=== PATIENT | female | born 1960 | race Caucasian/White ===

== ENCOUNTER 2018-07-25 18:32 | Emergency (ER) | payer OTHER, SELFPAY ==
[2018-07-25] MEDS ORDERED: HYDROCODONE/APAP 5/325 MG TAB ONE (19:26)
[2018-07-25] MEDS ORDERED: NA CHLORIDE 0.9% 1,000 ML ONE (19:26)
[2018-07-25 19:30] LABS: Absolute Lymphocytes (CBC) 0.9 K/uL (0.7-4.9); Absolute Monocytes 1.1 K/uL (0.1-1.3); Absolute Neutrophil 8.1 K/uL (1.8-8.0); Basophils % 0.3 % (0-1.3); Hematocrit 40.1 % (36.0-45.0); Lymphocytes % 8.7 % (15.3-44.8); MCH 30.7 pg (27.0-35.0); MCV 91.2 fL (80-100); MPV 7.7 fL (7.6-11.3)
[2018-07-25 19:55] LABS: Albumin 2.4 g/dL (3.4-5.0); Bilirubin Direct 0.3 mg/dL (0-0.2); Bilirubin Total 0.5 mg/dL (0.2-1.0); Potassium 3.4 mmol/L (3.5-5.1); Protein, Total 6.6 g/dL (6.4-8.2)
--- NOTE | 2018-07-25 20:31 | ER ---
Nurse's Notes [facility] Name: Ruma Daniel Age: 58 yrs Sex: Female : 1960 Arrival Date: 07/25/2018 Time: 18:36 Bed 4 Private MD: Diagnosis: Diarrhea, unspecified;Vomiting;Viral gastroenteritis;Headache Presentation: 07/25 18:37 Presenting complaint: EMS states: NAUSEA/VOMITING/DIARRHEA x3 DAYS. Transition of care: bp patient was not received from another setting of care. Onset of symptoms is unknown. Risk Assessment: Do you want to hurt yourself or someone else? Patient reports no desire to harm self or others. Initial Sepsis Screen: Does the patient meet any 2 criteria? HR > 90 bpm. No. Patient's initial sepsis screen is negative. Does the patient have a suspected source of infection? No. Patient's initial sepsis screen is negative. Care prior to arrival: Glucose check: 183. 18:37 Method Of Arrival: EMS: [facility] bp 18:37 Acuity: LELE 3 bp Triage Assessment: 18:38 General: Appears in no apparent distress. comfortable, obese, Behavior is cooperative, bp appropriate for age, anxious. Pain: Denies pain. EENT: No deficits noted. Neuro: Level of Consciousness is awake, alert, obeys commands, Oriented to person, place, time, situation, Appropriate for age. Cardiovascular: No deficits noted. Respiratory: Airway is patent Respiratory effort is even, unlabored, Respiratory pattern is regular, symmetrical. GI: Abdomen is obese, Reports diarrhea, nausea, vomiting. : No signs and/or symptoms were reported regarding the genitourinary system. Derm: No deficits noted. Musculoskeletal: Circulation, motion, and sensation intact. Range of motion: intact in all extremities. Historical: - Allergies: 18:38 Lisinopril; bp 18:38 Reglan; bp - PMHx: 18:38 Diabetes - IDDM; bp - PSHx: 18:38 Gastric Bypass; bp - Immunization history:: Adult Immunizations up to date. - Social history:: Smoking status: Patient/guardian denies using tobacco. - Ebola Screening: : Patient negative for fever greater than or equal to 101.5 degrees Fahrenheit, and additional compatible Ebola Virus Disease symptoms Patient denies exposure to infectious person Patient denies travel to an Ebola-affected area in the 21 days before illness onset No symptoms or risks identified at this time. Screenin:51 Abuse screen: Denies threats or abuse. Denies injuries from another. Nutritional bp screening: No deficits noted. Tuberculosis screening: No symptoms or risk factors identified. Fall Risk None identified. Assessment: 18:38 General: SEE TRIAGE NOTE. GI: Abdomen is obese, Bowel sounds present X 4 quads. bp 19:00 General: Appears uncomfortable, Behavior is calm, cooperative, appropriate for age. ea Pain: Denies pain. Neuro: Level of Consciousness is awake, alert, obeys commands, Oriented to person, place, time, situation. Cardiovascular: Patient's skin is warm and dry. Respiratory: Airway is patent Respiratory effort is even, unlabored, Respiratory pattern is regular, symmetrical. GI: Abdomen is obese, Bowel sounds present X 4 quads. Derm: Skin is pink, warm \T\ dry. Musculoskeletal: Reports generalized weakness. 20:56 Reassessment: Patient and/or family updated on plan of care and expected duration. Pain ea level reassessed. Patient is alert, oriented x 3, equal unlabored respirations, skin warm/dry/pink. Patient states feeling better. Patient states symptoms have improved. 21:12 Reassessment: Patient and/or family updated on plan of care and expected duration. Pain ea level reassessed. Patient is alert, oriented x 3, equal unlabored respirations, skin warm/dry/pink. Discharge instruction given to patient, verbalized the understanding of instruction Patient denies pain at this time. Patient states feeling better. Patient states symptoms have improved. Vital Signs: 18:38 BP 146 / 65; Pulse 95; Resp 20; Temp 98; Pulse Ox 93% ; Weight 122.47 kg; Height 5 ft. bp 5 in. (165.10 cm); 19:00 BP 137 / 53; Pulse 80; Resp 18; Pulse Ox 95% on R/A; ea 20:56 BP 111 / 56; Pulse 78; Resp 18; Temp 97.8(O); Pulse Ox 98% on R/A; ea 18:38 Body Mass Index 44.93 (122.47 kg, 165.10 cm) bp ED Course: 18:36 Patient arrived in ED. bp 18:38 Triage completed. bp 18:38 Arm band placed on. bp 18:43 Kendrick Stroud NP is PHCP. pm1 18:43 Braxton Marks MD is Attending Physician. pm1 18:51 Patient has correct armband on for positive identification. Bed in low position. Call bp light in reach. Side rails up X2. 18:55 Lyndon De La Garza, RN is Primary Nurse. bp 19:15 Inserted saline lock: 22 gauge in right antecubital area, using aseptic technique. bp Blood collected. 20:56 No provider procedures requiring assistance completed. ea 21:00 IV discontinued, intact, bleeding controlled, No redness/swelling at site. Pressure ea dressing applied. Administered Medications: 19:23 Drug: HYDROcodone-acetaminophen 5 mg-325 mg 1 tabs Route: PO; bp 20:55 Follow up: Response: No adverse reaction; Pain is decreased ea 19:24 Drug: NS 0.9% 1000 ml Route: IV; Rate: 1000 ml; Site: right antecubital; bp 21:00 Follow up: Response: No adverse reaction; IV Status: Completed infusion; IV Intake: ea 1000ml 20:39 Drug: Potassium Chloride 20 mEq Route: PO; ea 20:55 Follow up: Response: No adverse reaction ea Intake: 21:00 IV: 1000ml; Total: 1000ml. ea Outcome: 20:31 Discharge ordered by MD. pm1 21:13 Discharged to home via wheelchair, with family. ea 21:13 Condition: stable 21:13 Discharge instructions given to patient, Instructed on discharge instructions, follow up and referral plans. medication usage, Demonstrated understanding of instructions, follow-up care, medications, Prescriptions given X 2. 21:14 Patient left the ED. ea Signatures: Kendrick Stroud NP ENVIRONMENTAL CONFLICT MANAGER pm1 Yane Sin RN RN ea Lyndon De La Garza, RN RN bp
--- NOTE | 2018-07-25 20:31 | EDPHYS ---
Physician Documentation [facility] Name: Ruma Daniel Age: 58 yrs Sex: Female : 1960 Arrival Date: 07/25/2018 Time: 18:36 Bed 4 Private MD: ED Physician Braxton Marks HPI: 07/25 19:00 This 58 yrs old Female presents to ER via EMS with complaints of pm1 Nausea/Vomiting/Diarrhea. 19:00 The patient presents to the emergency department with nausea, vomiting, diarrhea. pm1 Onset: The symptoms/episode began/occurred 3 day(s) ago. Possible causes: sick contacts, by family, father. The symptoms are aggravated by nothing. The symptoms are alleviated by Lomotil and phenergan. Associated signs and symptoms: Pertinent negatives: abdominal pain, dysuria, fever. Severity of symptoms: in the emergency department the symptoms have resolved no diarrhea or vomiting today. Historical: - Allergies: 18:38 Lisinopril; bp 18:38 Reglan; bp - PMHx: 18:38 Diabetes - IDDM; bp - PSHx: 18:38 Gastric Bypass; bp - Immunization history:: Adult Immunizations up to date. - Social history:: Smoking status: Patient/guardian denies using tobacco. - Ebola Screening: : Patient negative for fever greater than or equal to 101.5 degrees Fahrenheit, and additional compatible Ebola Virus Disease symptoms Patient denies exposure to infectious person Patient denies travel to an Ebola-affected area in the 21 days before illness onset No symptoms or risks identified at this time. ROS: 19:00 Constitutional: Negative for fever, chills, and weight loss, Eyes: Negative for injury, pm1 pain, redness, and discharge, ENT: Negative for injury, pain, and discharge, Neck: Negative for injury, pain, and swelling, Cardiovascular: Negative for chest pain, palpitations, and edema, Respiratory: Negative for shortness of breath, cough, wheezing, and pleuritic chest pain. 19:00 Back: Negative for injury and pain, : Negative for injury, bleeding, discharge, and swelling, MS/Extremity: Negative for injury and deformity, Skin: Negative for injury, rash, and discoloration, Neuro: Negative for headache, weakness, numbness, tingling, and seizure. 19:00 Abdomen/GI: Positive for nausea, vomiting, and diarrhea, Negative for abdominal pain. Exam: 19:00 Constitutional: This is a well developed, well nourished patient who is awake, alert, pm1 and in no acute distress. Head/Face: Normocephalic, atraumatic. Eyes: Pupils equal round and reactive to light, extra-ocular motions intact. Lids and lashes normal. Conjunctiva and sclera are non-icteric and not injected. Cornea within normal limits. Periorbital areas with no swelling, redness, or edema. ENT: Nares patent. No nasal discharge, no septal abnormalities noted. Tympanic membranes are normal and external auditory canals are clear. Oropharynx with no redness, swelling, or masses, exudates, or evidence of obstruction, uvula midline. Mucous membranes moist. Neck: Trachea midline, no thyromegaly or masses palpated, and no cervical lymphadenopathy. Supple, full range of motion without nuchal rigidity, or vertebral point tenderness. No Meningismus. Chest/axilla: Normal chest wall appearance and motion. Nontender with no deformity. No lesions are appreciated. Cardiovascular: Regular rate and rhythm with a normal S1 and S2. No gallops, murmurs, or rubs. Normal PMI, no JVD. No pulse deficits. Respiratory: Lungs have equal breath sounds bilaterally, clear to auscultation and percussion. No rales, rhonchi or wheezes noted. No increased work of breathing, no retractions or nasal flaring. Abdomen/GI: Soft, non-tender, with normal bowel sounds. No distension or tympany. No guarding or rebound. No evidence of tenderness throughout. Back: No spinal tenderness. No costovertebral tenderness. Full range of motion. Skin: Warm, dry with normal turgor. Normal color with no rashes, no lesions, and no evidence of cellulitis. MS/ Extremity: Pulses equal, no cyanosis. Neurovascular intact. Full, normal range of motion. 19:00 Neuro: Orientation: is normal, Motor: is normal, moves all fours, Sensation: is normal, no obvious gross deficits, Gait: is steady, at a normal pace, without difficulty. Vital Signs: 18:38 BP 146 / 65; Pulse 95; Resp 20; Temp 98; Pulse Ox 93% ; Weight 122.47 kg; Height 5 ft. bp 5 in. (165.10 cm); 19:00 BP 137 / 53; Pulse 80; Resp 18; Pulse Ox 95% on R/A; ea 20:56 BP 111 / 56; Pulse 78; Resp 18; Temp 97.8(O); Pulse Ox 98% on R/A; ea 18:38 Body Mass Index 44.93 (122.47 kg, 165.10 cm) bp MDM: 18:44 Patient medically screened. pm1 18:54 Data reviewed: vital signs. pm1 20:30 Counseling: I had a detailed discussion with the patient and/or guardian regarding: the pm1 historical points, exam findings, and any diagnostic results supporting the discharge/admit diagnosis, lab results, the need for outpatient follow up, to return to the emergency department if symptoms worsen or persist or if there are any questions or concerns that arise at home. 07/25 18:55 Order name: Basic Metabolic Panel; Complete Time: 19:57 pm1 07/25 18:55 Order name: CBC with Diff; Complete Time: 19:39 pm1 07/25 18:55 Order name: Hepatic Function; Complete Time: 19:57 pm1 07/25 18:55 Order name: IV Saline Lock; Complete Time: 19:24 pm1 07/25 18:55 Order name: Labs collected and sent; Complete Time: 19:24 pm1 07/25 20:25 Order name: PO challenge; Complete Time: 20:36 pm1 Administered Medications: 19:23 Drug: HYDROcodone-acetaminophen 5 mg-325 mg 1 tabs Route: PO; bp 20:55 Follow up: Response: No adverse reaction; Pain is decreased ea 19:24 Drug: NS 0.9% 1000 ml Route: IV; Rate: 1000 ml; Site: right antecubital; bp 21:00 Follow up: Response: No adverse reaction; IV Status: Completed infusion; IV Intake: ea 1000ml 20:39 Drug: Potassium Chloride 20 mEq Route: PO; ea 20:55 Follow up: Response: No adverse reaction ea Disposition: 07/26 07:15 Co-signature as Attending Physician, Braxton Marks MD I agree with the assessment and aline plan of care. Disposition: 07/25/18 20:31 Discharged to Home. Impression: Diarrhea, unspecified, Vomiting, Viral gastroenteritis, Headache. - Condition is Stable. - Discharge Instructions: Food Choices to Help Relieve Diarrhea, Adult, Diarrhea, Adult, Nausea and Vomiting, Adult, Viral Gastroenteritis, Adult. - Prescriptions for promethazine 25 mg Oral Tablet - take 1 tablet by ORAL route every 6 hours As needed; 20 tablet. Tylenol- Codeine #3 300-30 mg Oral Tablet - take 2 tablets by ORAL route every 6 hours As needed; 20 tablet. - Medication Reconciliation Form, Thank You Letter, Antibiotic Education, Prescription Opioid Use form. - Follow up: Emergency Department; When: As needed; Reason: Worsening of condition. Follow up: Private Physician; When: 2 - 3 days; Reason: Recheck today's complaints, Continuance of care, Re-evaluation by your physician. - Problem is new. - Symptoms have improved. Signatures: Dispatcher [employer] EDMS Braxton Marks MD MD cha Marinas, Patrick, JOSE ALFREDO CALENDERING SUPERVISOR pm1 Yane Sin, RN RN Lyndon Navarro RN RN bp Corrections: (The following items were deleted from the chart) 07/25 20:32 20:31 07/25/2018 20:31 Discharged to Home. Impression: Diarrhea, unspecified; Vomiting; pm1 Viral gastroenteritis. Condition is Stable. Forms are Medication Reconciliation Form, Thank You Letter, Antibiotic Education, Prescription Opioid Use. Follow up: Emergency Department; When: As needed; Reason: Worsening of condition. Follow up: Private Physician; When: 2 - 3 days; Reason: Recheck today's complaints, Continuance of care, Re-evaluation by your physician. Problem is new. Symptoms have improved. [facility] 20:57 18:55 Urine Dipstick-Ancillary ordered. [facility] 20:57 18:55 Urine Test ordered. [facility] ea 21:14 20:32 07/25/2018 20:31 Discharged to Home. Impression: Diarrhea, unspecified; Vomiting; ea Viral gastroenteritis; Headache. Condition is Stable. Discharge Instructions: Food Choices to Help Relieve Diarrhea, Adult, Diarrhea, Adult, Nausea and Vomiting, Adult, Viral Gastroenteritis, Adult. Prescriptions for promethazine 25 mg Oral Tablet - take 1 tablet by ORAL route every 6 hours As needed; 20 tablet, Tylenol-Codeine #3 300-30 mg Oral Tablet - take 2 tablets by ORAL route every 6 hours As needed; 20 tablet. and Forms are Medication Reconciliation Form, Thank You Letter, Antibiotic Education, Prescription Opioid Use. Follow up: Emergency Department; When: As needed; Reason: Worsening of condition. Follow up: Private Physician; When: 2 - 3 days; Reason: Recheck today's complaints, Continuance of care, Re-evaluation by your physician. Problem is new. Symptoms have improved. pm1
[2018-07-25] MEDS ORDERED: POTASSIUM CL SA 10 MEQ TAB PO ONE (20:45)
== END 2018-07-25 21:14 | disposition home or self-care (01) ==
LOC: ER 18:32
DX: A08.4 Viral intestinal infection, unspecified (principal); R51 Headache; Z88.8 Allergy status to other drugs, medicaments and biological substances
CPT/HCPCS: 36415; 80048; 80076; 85025; 96360; 96361; 99284; J7030

== ENCOUNTER 2018-07-29 19:21 | Inpatient (IN) | payer OTHER ==
--- OUTSIDE RECORDS SUMMARY | 2018-07-29 19:23 | XMS REPORT ---
:1960 [facility] Address [address] [place] [address] Care Team Providers Name Role Phone Unavailable Unavailable Unavailable Payers Payer Name Policy Type Policy Number Effective Date Expiration Date Problems This patient has no known problems. Allergies, Adverse Reactions, Alerts Allergy Name Allergy Status Severity Reaction(s) Onset Inactive Treating Comments Type Date Date Clinician lisinopril DA Active SV 2017-08 0-16 00:00: 00 metformin DA Active MO 2017-08 016 00:00: 00 metoclopramide DA Active SV 2017-08 016 00:00: 00 lisinopril DA Active SV 02-15 00:00: 00 metformin DA Active MO 02-15 00:00: 00 metoclopramide DA Active SV 6 00:00: 00 Medications This patient has no known medications.
[2018-07-29] MEDS ORDERED: ONDANSETRON 4 MG/2 ML VIAL ONE (19:57)
[2018-07-29] MEDS ORDERED: NA CHLORIDE 0.9% 1,000 ML ONE (19:58)
[2018-07-29 20:26] LABS: Albumin 1.8 g/dL (3.4-5.0); Bilirubin Direct 0.3 mg/dL (0-0.2); Bilirubin Total 0.5 mg/dL (0.2-1.0); Protein, Total 6.8 g/dL (6.4-8.2)
[2018-07-29 20:28] LABS: Potassium 2.9 mmol/L (3.5-5.1)
[2018-07-29 20:29] LABS: Absolute Lymphocytes (CBC) 0.9 K/uL (0.7-4.9); Absolute Monocytes 2.1 K/uL (0.1-1.3); Basophils % 0.2 % (0-1.3); Hematocrit 38.8 % (36.0-45.0); Lymphocytes % 3.7 % (15.3-44.8); MCH 30.5 pg (27.0-35.0); MCV 90.7 fL (80-100); MPV 9.3 fL (7.6-11.3); Monocytes % 8.4 % (3.3-12.3); RBC Red Blood Cell Count 4.28 M/uL (3.86-4.86)
[2018-07-29] MEDS ORDERED: KCL 20 MEQ/100 mL IVPB 20 MEQ/100 ML BAG IV ONE (20:41)
[2018-07-29] MEDS ORDERED: POTASSIUM CL SA 10 MEQ TAB PO ONE (20:41)
[2018-07-29 21:17] LABS: Blood Morphology Comment NOT SEEN (NOT SEEN); Platelet Estimate ADEQ
[2018-07-30] MEDS ORDERED: CEFTRIAXONE/SWI 1gm 1 GM/10 ML SYR ONE (00:10)
[2018-07-30] MEDS ORDERED: NA CHLORIDE 0.9% 500 ML ONE (00:10)
--- NOTE | 2018-07-30 00:14 | EDPHYS ---
Physician Documentation [facility] Name: Ruma Daniel Age: 58 yrs Sex: Female : 1960 Arrival Date: 07/29/2018 Time: 19:25 Bed 6 Private MD: ED Physician Chano Encarnacion HPI: 07/29 19:47 This 58 yrs old Female presents to ER via EMS with complaints of nausea, rn weakness. 19:48 The patient presents to the emergency department with nausea, vomiting. Onset: The rn symptoms/episode began/occurred 2 day(s) ago. Possible causes: unknown. The symptoms are aggravated by nothing. The symptoms are alleviated by nothing. Severity of symptoms: At their worst the symptoms were mild in the emergency department the symptoms are unchanged. The patient has not experienced similar symptoms in the past. The patient has been recently seen at the [facility] Emergency Department. Reports nausea/vomiting/diarrhea for a few days, + generalized weakness, seen here 2 days ago, diagnosed with viral syndrome, felt better, then symptoms worsened yesterday afternoon. Not taking her medications prescribed or diabetic meds. . Historical: - Allergies: 19:47 Lisinopril; jd3 19:47 Reglan; jd3 19:47 metformin; jd3 - Home Meds: 19:47 gabapentin 600 mg oral tab 1 tab every 8 hours [Active]; Lyrica 150 mg Oral 1 cap 3 jd3 times per day [Active]; Klor-Con M20 20 mEq Oral TbTQ 1 tab 2 times per day [Active]; ketorolac 10 mg Oral tab 1 tab every 8 hours [Active]; polymyxin B sulf-trimethoprim 10,000 unit- 1 mg/mL ophthalmic drop 1 drop twice a day [Active]; acetaminophen-codeine 300-30 mg Oral tab 2 tabs every 6 hours [Active]; topiramate 25 mg oral CSpX 1 cap twice a day [Active]; Januvia 100 mg oral tab 1 tab once daily [Active]; fluoxetine 40 mg Oral cap 1 cap once daily [Active]; carvedilol 12.5 mg oral tab 1 tab 2 times per day [Active]; pantoprazole 20 mg oral TbEC 1 tab once daily [Active]; glimepiride 1 mg Oral tab 1 tab twice a day [Active]; promethazine 25 mg Oral tab 1 tab every 6 hours [Active]; cyclobenzaprine 10 mg Oral tab 1 tab 2 times per day [Active]; atorvastatin 40 mg oral tab 1 tab once daily [Active]; - PMHx: 19:47 breast cancer; Sleep Apnea; Diabetes - NIDDM; High Cholesterol; jd3 - PSHx: 19:47 Gastric Bypass; ; lymph sx (no sticks on right arm); jd3 - Immunization history:: Adult Immunizations up to date, Flu vaccine is up to date. - Social history:: Smoking status: Patient/guardian denies using tobacco, the patient reports quitting approximately 4 years ago. - Ebola Screening: : No symptoms or risks identified at this time. - Family history:: not pertinent. - Hospitalizations: : No recent hospitalization is reported. ROS: 19:48 Constitutional: + chills Eyes: Negative for injury, pain, redness, and discharge, ENT: rn dry mouth Neck: Negative for injury, pain, and swelling, Cardiovascular: Negative for chest pain, palpitations, and edema, Respiratory: Negative for shortness of breath, cough, wheezing, and pleuritic chest pain, Abdomen/GI: + nausea/vomiting MS/Extremity: Negative for injury and deformity, Skin: Negative for injury, rash, and discoloration, Neuro: + generalized weakness Exam: 19:48 Constitutional: Overweight female no acute distress Head/Face: Normocephalic, rn atraumatic. Eyes: Pupils equal round and reactive to light, extra-ocular motions intact. Lids and lashes normal. Conjunctiva and sclera are non-icteric and not injected. Cornea within normal limits. Periorbital areas with no swelling, redness, or edema. ENT: dry MM Neck: Trachea midline, no thyromegaly or masses palpated, and no cervical lymphadenopathy. Supple, full range of motion without nuchal rigidity, or vertebral point tenderness. No Meningismus. Cardiovascular: tachycardic, regular, no murmur Respiratory: Lungs have equal breath sounds bilaterally, clear to auscultation. No rales, rhonchi or wheezes noted. No increased work of breathing, no retractions or nasal flaring. Abdomen/GI: soft, non-tender MS/ Extremity: Pulses equal, no cyanosis. Neurovascular intact. Full, normal range of motion. Equal circumference. Neuro: Awake and alert, GCS 15, oriented to person, place, time, and situation. Cranial nerves II-XII grossly intact. Motor strength 5/5 in all extremities. Sensory grossly intact. Vital Signs: 19:47 BP 99 / 88; Pulse 107; Resp 20 S; Temp 98.7(O); Pulse Ox 95% on R/A; Weight 122.47 kg jd3 (R); Height 5 ft. 5 in. (165.10 cm) (R); Pain 7/10; 19:52 BP 90 / 56; Pulse 96; Resp 18; Pulse Ox 95% on R/A; mt 20:48 BP 101 / 56; Pulse 91; Resp 20 S; Pulse Ox 96% on R/A; jd3 23:47 BP 135 / 72; Pulse 77; Resp 20 S; Pulse Ox 97% on 2 lpm NC; jd3 07/30 00:46 BP 136 / 52; Pulse 77; Resp 20 S; Pulse Ox 97% on R/A; jd3 01:30 BP 137 / 59; Pulse 80; Resp 18; Pulse Ox 98% on 2 lpm NC; lp1 02:30 BP 106 / 49; Pulse 86; Resp 18; Pulse Ox 98% on 2 lpm NC; lp1 03:00 BP 100 / 52; Pulse 76; Resp 18; Pulse Ox 99% on 2 lpm NC; lp1 03:48 BP 111 / 54; Pulse 77; Resp 18; Pulse Ox 99% on 2 lpm NC; lp1 07/29 19:47 Body Mass Index 44.93 (122.47 kg, 165.10 cm) [facility] MDM: 07/29 19:25 Patient medically screened. rn 07/30 00:11 Differential diagnosis: Nonspecific abd pain, diverticulitis, viral gastroenteritis, rn gastroenteritis, kidney stone. Data reviewed: vital signs, nurses notes, lab test result(s), radiologic studies, CT scan, and as a result, I will admit patient. Counseling: I had a detailed discussion with the patient and/or guardian regarding: the historical points, exam findings, and any diagnostic results supporting the discharge/admit diagnosis, lab results, radiology results, the need for further work-up and treatment in the hospital. Response to treatment: the patient's symptoms have mildly improved after treatment. Admission orders: after a detailed discussion of the patient's condition and case, the admit orders are written by me. 07/29 19:26 Order name: Basic Metabolic Panel; Complete Time: 20:32 rn 07/29 19:26 Order name: CBC with Diff; Complete Time: 21:32 rn 07/29 19:26 Order name: Hepatic Function; Complete Time: 20:32 rn 07/29 19:26 Order name: Lipase; Complete Time: 20:32 rn 07/29 19:26 Order name: Flu; Complete Time: 21:32 rn 07/29 21:18 Order name: Manual Differential; Complete Time: 21:32 EDAL 07/29 19:48 Order name: CT Abd/Pelvis - W/Contrast rn 07/29 19:48 Order name: US Abdomen Limited rn 07/30 00:04 Order name: Urine Microscopic Only 07/30 00:05 Order name: Urine Dipstick--Ancillary (enter results) 07/30 00:58 Order name: Urine Dipstick-Ancillary EDAL 07/30 01:00 Order name: Urine Microscopic Only EDAL 07/30 01:51 Order name: Glucose, Ancillary Testing EDAL 07/29 19:26 Order name: IV Start; Complete Time: 19:31 rn 07/29 19:26 Order name: IV Saline Lock; Complete Time: 19:31 rn 07/29 19:26 Order name: Labs collected and sent; Complete Time: 19:31 rn 07/29 19:26 Order name: Urine Dipstick-Ancillary (obtain specimen); Complete Time: 00:04 rn 07/29 19:26 Order name: Glucose Level; Complete Time: 19:34 rn Administered Medications: 07/29 19:53 Drug: Zofran 4 mg Route: IVP; Site: right antecubital; d3 21:08 Follow up: Response: No adverse reaction [facility] 19:53 Drug: NS 0.9% 1000 ml Route: IV; Rate: 1000 ml; Site: right antecubital; [facility] 12 20:53 Follow up: Response: No adverse reaction; IV Status: Completed infusion [facility] 07/29 20:42 Drug: Potassium Chloride 40 mEq Route: PO; [facility] 07/30 04:10 Follow up: Response: No adverse reaction [facility] 07/29 20:42 Drug: Potassium Chloride 20 mEq Route: IV; Rate: calculated rate; Site: left [facility] antecubital; 07/30 04:10 Follow up: Response: No adverse reaction; IV Status: Completed infusion jd3 00:14 Drug: NS 0.9% 500 ml Route: IV; Rate: bolus; Site: left antecubital; bb 04:10 Follow up: Response: No adverse reaction; IV Status: Completed infusion jd3 00:14 Drug: Rocephin - (cefTRIAXone) 1 grams Route: IVPB; Infused Over: 30 mins; Site: left bb antecubital; 04:10 Follow up: Response: No adverse reaction; IV Status: Completed infusion jd3 01:36 Drug: TORadol 30 mg Route: IVP; Site: left antecubital; jd3 04:09 Follow up: Response: No adverse reaction jd3 Point of Care Testing: Blood Glucose: 07/29 19:33 Blood Glucose: 323 mg/dL; pa Ranges: Critical Glucose Levels:Adult <50 mg/dl or >400 mg/dl <40 mg/dl or >180 mg/dl Disposition: 07/30/18 00:13 Hospitalization ordered by Shelia Hancock for Inpatient Admission. Preliminary diagnosis are Ureteral stone with hydronephrosis, Dehydration, Weakness. - Bed requested for Telemetry/MedSurg (Inpatient). - Status is Inpatient Admission. lp1 - Condition is Stable. - Problem is new. - Symptoms have improved. UTI on Admission? No Signatures: Dispatcher [employer] EDMS Dee Sam RN RN bb Chano Encarnacion MD MD rn Martinez, Eric em1 Cyndi Obrien RN RN lp1 Dick Whitehead RN RN jd3 Corrections: (The following items were deleted from the chart) 07/30 03:45 00:13 Hospitalization Ordered by Shelia Hancock MD for Inpatient Admission. Preliminary em1 diagnosis is Ureteral stone with hydronephrosis; Dehydration; Weakness. Bed requested for Telemetry/MedSurg (Inpatient). Status is Inpatient Admission. Condition is Stable. Problem is new. Symptoms have improved. UTI on Admission? No. rn 04:19 03:45 07/30/2018 00:13 Hospitalization Ordered by Shelia Hancock MD for Inpatient lp1 Admission. Preliminary diagnosis is Ureteral stone with hydronephrosis; Dehydration; Weakness. Bed requested for Telemetry/MedSurg (Inpatient). Status is Inpatient Admission. Condition is Stable. Problem is new. Symptoms have improved. UTI on Admission? No. em1
--- NOTE | 2018-07-30 00:14 | ER ---
Nurse's Notes [facility] Name: Ruma Daniel Age: 58 yrs Sex: Female : 1960 Arrival Date: 07/29/2018 Time: 19:25 Bed 6 Private MD: Diagnosis: Ureteral stone with hydronephrosis;Dehydration;Weakness Presentation: 07/29 19:31 Presenting complaint: EMS states: "we were called out for a pt with nausea and jd3 weakness, she was seen here recently with similar problems and has not been compliant with taking her medications including her home meds.". Transition of care: patient was not received from another setting of care. Onset of symptoms was July 29, 2018. Risk Assessment: Do you want to hurt yourself or someone else? Patient reports no desire to harm self or others. Initial Sepsis Screen: Does the patient meet any 2 criteria? No. Patient's initial sepsis screen is negative. Does the patient have a suspected source of infection? No. Patient's initial sepsis screen is negative. Care prior to arrival: None. 19:31 Method Of Arrival: EMS: [facility] jd3 19:31 Acuity: LELE 3 jd3 Historical: - Allergies: 19:47 Lisinopril; jd3 19:47 Reglan; jd3 19:47 metformin; jd3 - Home Meds: 19:47 gabapentin 600 mg oral tab 1 tab every 8 hours [Active]; Lyrica 150 mg Oral 1 cap 3 jd3 times per day [Active]; Klor-Con M20 20 mEq Oral TbTQ 1 tab 2 times per day [Active]; ketorolac 10 mg Oral tab 1 tab every 8 hours [Active]; polymyxin B sulf-trimethoprim 10,000 unit- 1 mg/mL ophthalmic drop 1 drop twice a day [Active]; acetaminophen-codeine 300-30 mg Oral tab 2 tabs every 6 hours [Active]; topiramate 25 mg oral CSpX 1 cap twice a day [Active]; Januvia 100 mg oral tab 1 tab once daily [Active]; fluoxetine 40 mg Oral cap 1 cap once daily [Active]; carvedilol 12.5 mg oral tab 1 tab 2 times per day [Active]; pantoprazole 20 mg oral TbEC 1 tab once daily [Active]; glimepiride 1 mg Oral tab 1 tab twice a day [Active]; promethazine 25 mg Oral tab 1 tab every 6 hours [Active]; cyclobenzaprine 10 mg Oral tab 1 tab 2 times per day [Active]; atorvastatin 40 mg oral tab 1 tab once daily [Active]; - PMHx: 19:47 breast cancer; Sleep Apnea; Diabetes - NIDDM; High Cholesterol; jd3 - PSHx: 19:47 Gastric Bypass; ; lymph sx (no sticks on right arm); jd3 - Immunization history:: Adult Immunizations up to date, Flu vaccine is up to date. - Social history:: Smoking status: Patient/guardian denies using tobacco, the patient reports quitting approximately 4 years ago. - Ebola Screening: : No symptoms or risks identified at this time. - Family history:: not pertinent. - Hospitalizations: : No recent hospitalization is reported. Screenin:48 Abuse screen: Denies threats or abuse. Nutritional screening: No deficits noted. jd3 Tuberculosis screening: No symptoms or risk factors identified. Fall Risk IV access (20 points). Ambulatory Aid- Crutches/Cane/Walker (15 pts). Gait- Weak (10 pts.). Mental Status- Oriented to own ability (0 pts). Total Rivera Fall Scale indicates High Risk Score (45 or more points). Fall prevention measures have been instituted. Side Rails Up X 2 Placed Close to Nursing Station Frequent Obs/Assessments Occuring Family Present and informed to notify staff if the need to leave the bedside. Assessment: 19:30 General: Appears uncomfortable, Behavior is calm, cooperative, appropriate for age, jd3 Reports fatigue for. Pain: Complains of pain in head Quality of pain is described as aching. Neuro: Level of Consciousness is awake, alert, obeys commands, Oriented to person, place, time, situation, Reports weakness. Cardiovascular: Heart tones S1 S2 present Capillary refill < 3 seconds Patient's skin is warm and dry. Respiratory: Airway is patent Respiratory effort is even, unlabored, Respiratory pattern is regular, symmetrical, Breath sounds are clear bilaterally. Denies shortness of breath. GI: Abdomen is round non-distended, obese, Bowel sounds present X 4 quads. Abd is soft and non tender X 4 quads. Reports nausea. : No signs and/or symptoms were reported regarding the genitourinary system. EENT: No signs and/or symptoms were reported regarding the EENT system. Derm: Skin is intact, Skin is dry, Skin is normal, Skin temperature is warm. Musculoskeletal: Circulation, motion, and sensation intact. Range of motion: intact in all extremities. 20:47 Reassessment: Patient appears in no apparent distress at this time. Patient and/or jd3 family updated on plan of care and expected duration. Pain level reassessed. Patient is alert, oriented x 3, equal unlabored respirations, skin warm/dry/pink. 20:49 Reassessment: sister: Chrystal Car [phone], call with disposition. jd3 20:55 Reassessment: CT notified of pt finishing half of contrast. Pt reported that half is jd3 all she could finish. 21:55 Reassessment: Patient appears in no apparent distress at this time. Patient and/or jd3 family updated on plan of care and expected duration. Pain level reassessed. Patient is alert, oriented x 3, equal unlabored respirations, skin warm/dry/pink. 22:55 Reassessment: Patient appears in no apparent distress at this time. No changes from jd3 previously documented assessment. Patient and/or family updated on plan of care and expected duration. Pain level reassessed. Patient is alert, oriented x 3, equal unlabored respirations, skin warm/dry/pink. 23:55 Reassessment: Patient appears in no apparent distress at this time. No changes from jd3 previously documented assessment. Patient and/or family updated on plan of care and expected duration. Pain level reassessed. Patient is alert, oriented x 3, equal unlabored respirations, skin warm/dry/pink. 07/30 00:44 Reassessment: Patient appears in no apparent distress at this time. No changes from jd3 previously documented assessment. Patient and/or family updated on plan of care and expected duration. Pain level reassessed. Patient is alert, oriented x 3, equal unlabored respirations, skin warm/dry/pink. 03:00 Reassessment: Patient resting, eyes closed, respirations unlabored; waiting for room lp1 assignment for admission. Vital Signs: 07/29 19:47 BP 99 / 88; Pulse 107; Resp 20 S; Temp 98.7(O); Pulse Ox 95% on R/A; Weight 122.47 kg jd3 (R); Height 5 ft. 5 in. (165.10 cm) (R); Pain 7/10; 19:52 BP 90 / 56; Pulse 96; Resp 18; Pulse Ox 95% on R/A; mt 20:48 BP 101 / 56; Pulse 91; Resp 20 S; Pulse Ox 96% on R/A; jd3 23:47 BP 135 / 72; Pulse 77; Resp 20 S; Pulse Ox 97% on 2 lpm NC; jd3 07/30 00:46 BP 136 / 52; Pulse 77; Resp 20 S; Pulse Ox 97% on R/A; jd3 01:30 BP 137 / 59; Pulse 80; Resp 18; Pulse Ox 98% on 2 lpm NC; lp1 02:30 BP 106 / 49; Pulse 86; Resp 18; Pulse Ox 98% on 2 lpm NC; lp1 03:00 BP 100 / 52; Pulse 76; Resp 18; Pulse Ox 99% on 2 lpm NC; lp1 03:48 BP 111 / 54; Pulse 77; Resp 18; Pulse Ox 99% on 2 lpm NC; lp1 07/29 19:47 Body Mass Index 44.93 (122.47 kg, 165.10 cm) jd3 ED Course: 07/29 19:25 Patient arrived in ED. as 19:25 Chano Encarnacion MD is Attending Physician. rn 19:30 Dick Whitehead RN is Primary Nurse. jd3 19:33 Inserted saline lock: 20 gauge in left antecubital area, using aseptic technique. Blood mt collected. 19:34 Triage completed. jd3 19:47 Arm band placed on. jd3 20:49 Patient has correct armband on for positive identification. Bed in low position. Call j light in reach. Side rails up X2. Adult w/ patient. 20:51 Notified ED physician of a critical lab result(s). potassium 2.9 and WBC of 25.1. jd3 22:10 Ultrasound completed. Patient tolerated well. sg3 07/30 00:00 Kelley cath inserted, using sterile technique, 16 Fr., by dc, balloon inflated, to bb gravity drainage, urine specimen collected. Patient tolerated well. 00:12 Shelia Hancock MD is Hospitalizing Provider. rn 00:14 Urine Microscopic Only Sent. bb 00:14 Urine Dipstick--Ancillary (enter results) Sent. 03:48 No provider procedures requiring assistance completed. Patient admitted, IV remains in lp1 place. Administered Medications: 07/29 19:53 Drug: Zofran 4 mg Route: IVP; Site: right antecubital; jd3 21:08 Follow up: Response: No adverse reaction jd3 19:53 Drug: NS 0.9% 1000 ml Route: IV; Rate: 1000 ml; Site: right antecubital; jd3 07/30 20:53 Follow up: Response: No adverse reaction; IV Status: Completed infusion jd3 07/29 20:42 Drug: Potassium Chloride 40 mEq Route: PO; jd3 07/30 04:10 Follow up: Response: No adverse reaction jd3 07/29 20:42 Drug: Potassium Chloride 20 mEq Route: IV; Rate: calculated rate; [facility]; 07/30 04:10 Follow up: Response: No adverse reaction; IV Status: Completed infusion jd3 00:14 Drug: NS 0.9% 500 ml Route: IV; Rate: bolus; Site: left antecubital; 04:10 Follow up: Response: No adverse reaction; IV Status: Completed infusion jd3 00:14 Drug: Rocephin - (cefTRIAXone) 1 grams Route: IVPB; Infused Over: 30 mins; Site: left antecubital; 04:10 Follow up: Response: No adverse reaction; IV Status: Completed infusion jd3 01:36 Drug: TORadol 30 mg Route: IVP; Site: left antecubital; jd3 04:09 Follow up: Response: No adverse reaction j Point of Care Testing: Blood Glucose: 07/29 19:33 Blood Glucose: 323 mg/dL; pa Ranges: Outcome: 07/30 00:13 Decision to Hospitalize by Provider. rn 03:48 Condition: stable lp1 03:48 Instructed on the need for admit. 04:09 Admitted to Med/surg accompanied by nurse, via stretcher, room 208, with oxygen, Report jd3 called to Morelia PATINO 04:19 Patient left the ED. lp1 Signatures: Aletha Chambers Brenda, RN RN bb Chano Encarnacion MD MD rn Pena, Laura, RN RN lp1 Michelle Barker mt, Jonathon, RN RN jd3 Tan, Tereza sg3 Corrections: (The following items were deleted from the chart) 03:26 03:00 Report given to CAREY Calles lp1 lp1 03:51 01:30 BP 137 / 59; Pulse 80bpm; Resp 18bpm; Pulse Ox 98% RA; lp1 lp1 03:51 02:30 BP 106 / 49; Pulse 86bpm; Resp 18bpm; Pulse Ox 98% RA; lp1 lp1 03:51 03:00 BP 100 / 52; Pulse 76bpm; Resp 18bpm; Pulse Ox 99% RA; lp1 lp1 03:51 03:48 BP 111 / 54; Pulse 77bpm; Resp 18bpm; Pulse Ox 99% RA; lp1 lp1
[2018-07-30 00:58] LABS: Urine Bacteria LOADED /HPF (<20)
[2018-07-30 00:58] LABS: Urine Blood 2+ (NEG); Urine Glucose NEGATIVE (NEG); Urine Protein 3+ (NEG); Urine Specific Gravity 1.025 (1.005-1.030); Urine pH 5.5 (5.0-7.0)
[2018-07-30 00:59] LABS: Urine Culture Reflex Order REFLEXED
[2018-07-30] MEDS ORDERED: KETOROLAC 30 MG/ML INJ ONE ×2 (01:33→19:21)
[2018-07-30] MEDS: NA CHLORIDE 0.9% 1,000 ML IV SCH ×2 (05:43→16:20)
[2018-07-30 06:49] LABS: Magnesium 1.6 mg/dL (1.8-2.4); Phosphorus 4.1 mg/dL (2.5-4.9); Potassium 3.7 mmol/L (3.5-5.1)
[2018-07-30 07:04] LABS: Absolute Lymphocytes (CBC) 1.2 K/uL (0.7-4.9); Absolute Neutrophil 21.4 K/uL (1.8-8.0); Hematocrit 35.9 % (36.0-45.0); Lymphocytes % 4.7 % (15.3-44.8); MCH 30.2 pg (27.0-35.0); MCV 90.8 fL (80-100); MPV 8.7 fL (7.6-11.3); Monocytes % 8.2 % (3.3-12.3); RBC Red Blood Cell Count 3.95 M/uL (3.86-4.86)
--- NOTE | 2018-07-30 07:15 | P.HP ---
Certification for Inpatient Patient admitted to: Inpatient With expected LOS: >2 Midnights Patient will require the following post-hospital care: None Practitioner: I am a practitioner with admitting privileges, knowledge of patient current condition, hospital course, and medical plan of care. Services: Services provided to patient in accordance with Admission requirements found in Title 42 Section 412.3 of the Code of Federal Regulations Patient History Date of Service: 07/30/18 Reason for admission: Obstructive uropathy History of Present Illness: Patient is a 58-year-old female came into the hospital with tachycardia and hypotension. Patient was found at home with elevated heart rate and low blood pressure. Patient has had generalize weakness and nausea. Patient came into the emergency room and workup revealed an obstructive uropathy. Patient had been into the ER a few days prior and diagnosed with an upper respiratory infection. Patient was discharged from the emergency room. Patient continued to have fever and pain in her flank so she came to the ER and that is when a CT scan revealed left-sided nephrolithiasis in the ureter with left hydronephrosis. Patient will be admitted to the hospital and treat with IV antibiotics and pain control along with IV fluids. Allergies lisinopril Adverse Reaction (Intermediate, Verified 07/30/18 05:44) Nausea/Vomiting metoclopramide [From Reglan] Adverse Reaction (Intermediate, Verified 07/30/18 05:44) Anaphylaxis metformin Adverse Reaction (Verified 07/30/18 05:44) Itching/Hives/Rash Home Medications: ALPRAZolam [Xanax*] 0.25 mg PO DAILY PRN 07/30/18 Atorvastatin Calcium [Lipitor*] 40 mg PO BEDTIME 07/30/18 Carvedilol [Coreg*] 12.5 mg PO BID 07/30/18 Codeine/APAP [Tylenol #3*] 2 tab PO Q6H PRN 07/30/18 Cyclobenzaprine [Flexeril*] 10 mg PO BID PRN 07/30/18 Ergocalciferol (Vitamin D2) [Vitamin D2] 1 tab PO BID 07/30/18 Fluoxetine HCl [Prozac*] 40 mg PO DAILY 07/30/18 Gabapentin [Neurontin*] 600 mg PO Q8H 07/30/18 Glimepiride [Amaryl*] 1 mg PO BID 07/30/18 Ketorolac [Toradol*] 10 mg PO Q8H PRN 07/30/18 Pantoprazole [Protonix Tab*] 20 mg PO DAILY 07/30/18 Polymyxin B Sulf/Trimethoprim [Polymyxin B-Tmp Eye Drops] 1 drop OPTH BID Potassium Oral Tab [Klor-Con 10 mEq Tab*] 20 meq PO BID 07/30/18 Pregabalin [Lyrica*] 150 mg PO TID 07/30/18 Promethazine HCl 25 mg PO Q6H PRN 07/30/18 Sitagliptin Phosphate [Januvia*] 100 mg PO DAILY 07/30/18 Topiramate [Topamax*] 25 mg PO BID 07/30/18 - Past Medical/Surgical History Has patient received pneumonia vaccine in the past: Yes Diabetic: Yes -: NIDDM -: Right Breast Cancer -: Hyperlipidemia -: -: Gastric Bypass -: Right Lumpectomy -: Right Partial Mastectomy - Family History Father Family History: Reviewed- Non-Contributory - Social History Smoking Status: Former smoker Alcohol use: No CD- Drugs: No Place of Residence: Home Review of Systems 10-point ROS is otherwise unremarkable Physical Examination - Vital Signs Temperature: 97.8 F Blood Pressure: 119/56 Pulse: 75 Respirations: 18 Pulse Ox (%): 95 - Physical Exam General: Alert, In no apparent distress, Oriented x3 HEENT: Atraumatic, PERRLA, Mucous membr. moist/pink, EOMI, Sclerae nonicteric Neck: Supple, 2+ carotid pulse no bruit, No LAD, Without JVD or thyroid abnormality Respiratory: Clear to auscultation bilaterally, Normal air movement Cardiovascular: Regular rate/rhythm, Normal S1 S2, No murmurs Gastrointestinal: Normal bowel sounds, Soft and benign, Non-distended, No rebound, No guarding, Tenderness Musculoskeletal: No clubbing, No swelling, No tenderness Integumentary: No rashes Neurological: Normal gait, Normal speech, Normal strength at 5/5 x4 extr, Normal tone, Sensation intact, Cranial nerves 3-12 intact, Normal affect Lymphatics: No axilla or inguinal lymphadenopathy - Studies Laboratory Data (last 24 hrs) 07/29/18 19:39: WBC 25.1 H* D, Hgb 13.1, Hct 38.8, Plt Count 273 D 07/29/18 19:39: Sodium 133 L, Potassium 2.9 L*, BUN 23 H, Creatinine 1.80 H, Glucose 324 H, Total Bilirubin 0.5, AST 21, ALT 26, Alkaline Phosphatase 213 H, Lipase 39 L Microbiology Data (last 24 hrs): 07/29/18 19:33 Nasopharnyx Influenza Type A Antigen Screen - Final 07/29/18 19:33 Nasopharnyx Influenza Type B Antigen Screen - Final Assessment & Plan - Problems (Diagnosis) (1) Obstructive uropathy Current Visit: Yes Status: Acute (2) Hydronephrosis of left kidney Current Visit: Yes Status: Acute (3) Left nephrolithiasis Current Visit: Yes Status: Acute (4) Tachyarrhythmia Current Visit: Yes Status: Acute (5) Hypotension Current Visit: Yes Status: Acute - Plan 1. Continue with IV hydration 2. Continue with IV antibiotics 3. Continue with pain control 4. NPO 5. Urology consultation; cystoscopy 6. Serial H&H, and we will monitor CBC, BMP, LFTs and lipase along with electrolytes. 7. Await blood cultures 8. GI and DVT prophylaxis Discharge Plan: Home Plan to discharge in: Greater than 2 days - Advance Directives Does patient have a Living Will: No Does patient have a Durable POA for Healthcare: No - Code Status/Comfort Care Code Status Assessed: Yes Code Status: Full Code Critical Care: No Time Spent Managing PTS Care (In Minutes): 50
[2018-07-30] MEDS: IPRATROPIUM BROM 0.5MG/2.5ML NEB SCH ×3 (07:31→20:00)
[2018-07-30] MEDS: ALBUTEROL 2.5 MG/3 ML NEB SOL NEB SCH ×3 (07:31→20:00)
[2018-07-30] MEDS ORDERED: PROMETHAZINE 25 MG TABLET PO PRN (07:50)
[2018-07-30] MEDS ORDERED: CYCLOBENZAPRINE 10 MG TAB PO PRN (07:50)
[2018-07-30] MEDS ORDERED: MORPHINE 2 MG/ML SYR IV PRN (07:54)
--- NOTE | 2018-07-30 07:55 | RAD REPORT ---
EXAM DESCRIPTION: CT - Abdomen Pelvis W Contrast - 07/29/2018 10:57 pm CLINICAL HISTORY: Abdominal pain. Nausea COMPARISON: None. TECHNIQUE: Computed axial tomography of the abdomen and pelvis was obtained. 100 cc Isovue-300 is ad ministered intravenously. Oral contrast was given. Preliminary report generated by virtual radiologic and review prior to dictation All CT scans are performed using dose optimization technique as appropriate and may include automated exposure control or mA/KV adjustment according to patient size. FINDINGS: Fatty liver Spleen, pancreas, and adrenals appear unremarkable. Tiny bilateral renal calculi. Delayed frustrated contrast in the left kidney with mild to moderate hy dronephrosis. 5 millimeter calculus mid left ureter is calcified unit 650. Punctate air bubble within the bladder The appendix is normal caliber. Diverticula stem from the colon without evidence of diverticulitis Periumbilical hernias contain fat. Postsurgical changes gastric bypass. Spondylosis involves lumbar spine resulting in spinal stenosis IMPRESSION: 5 millimeter calculus mid left ureter resulting in mild to moderate left hydronephrosis Punctate air bubble within the bladder may be secondary to instrumentation or infection
--- NOTE | 2018-07-30 07:56 | RAD REPORT ---
EXAM DESCRIPTION: US - Abdomen Exam Limited - 07/29/2018 10:09 pm CLINICAL HISTORY: Abdominal pain. COMPARISON: None. FINDINGS: The gallbladder wall is not thickened. A gallstone is not seen. Small amount of sludge The biliary tree is normal caliber. IMPRESSION: Small amount of sludge within the gallbladder. Otherwise, unremarkable Gallbladder ultrasound.
[2018-07-30] MEDS ORDERED: MAGNESIUM SULFATE 1 gm IVPB 1 GM/100 ML BAG IV ONE (09:00)
[2018-07-30] MEDS: TRIMETHOPRIM OPTH SCH ×2 (09:00→21:00)
[2018-07-30] MEDS: POLYMYXIN B SULF OPTH SCH ×2 (09:00→21:00)
[2018-07-30] MEDS ORDERED: POTASSIUM 25 MEQ EFFERV TAB PO ONE (09:00)
[2018-07-30] MEDS: CEFTRIAXONE/SWI 1gm 1 GM/10 ML SYR IV SCH ×2 (09:48→21:50)
[2018-07-30] MEDS: TOPIRAMATE 25 MG TAB PO SCH ×2 (09:53→21:50)
[2018-07-30] MEDS: FLUOXETINE 20 MG CAP PO SCH (09:53)
[2018-07-30] MEDS: PREGABALIN 75 MG CAP PO SCH ×3 (09:53→21:50)
[2018-07-30] MEDS: CARVEDILOL 12.5 MG TAB PO SCH ×2 (09:53→21:00)
[2018-07-30] MEDS: GABAPENTIN 300 MG CAP PO SCH ×2 (09:54→17:00)
[2018-07-30] MEDS: PANTOPRAZOLE 40MG TABLET PO SCH (09:54)
[2018-07-30] MEDS: SITAGLIPTIN PHOS 100 MG TAB PO SCH (09:55)
[2018-07-30] MEDS: POTASSIUM CL SA 10 MEQ TAB PO SCH ×2 (09:55→21:51)
[2018-07-30] MEDS: CODEINE 30MG/APAP 300MG TAB PO PRN (11:32)
[2018-07-30] MEDS ORDERED: GLUCAGON 1 MG/VIAL IM PRN (12:12)
[2018-07-30] MEDS ORDERED: D50W 25 GM/50 ML SYRINGE IV PRN (12:12)
[2018-07-30] MEDS: INSULIN -REGULAR HUMAN 50 UNIT/0.5 ML ML SQ SCH ×2 (16:30→21:52)
--- NOTE | 2018-07-30 17:13 | CON ---
History Of Present Illness: A pleasant 58-year-old lady with a history of morbid obesity, status pos t gastric bypass at [facility] on March 15, 2018. She was 353 pounds, now she is 287 pounds. S he developed headache and some weakness, nausea, and vomiting about a week and a half ago. She was s een in the ER, diagnosed with upper respiratory infection, sent home on antibiotics. She tends to shin ve chronic back pain, but recently she had a different type of back pain over the last 2 weeks. She came to the hospital recently in septic shock with tachycardia and hypotension with elevated heart ra te and low blood pressure with some generalized weakness and nausea. In the ER, she had a CT scan sh owing a 5 mm mid ureteral stone on the left, Hounsfield units 650 with air bubbles in the bladder. H er urinalysis showed 2+ blood, nitrite negative, esterase 1+, bacteria loaded. Urine culture is pend ing. She was admitted with sepsis and placed on IV antibiotics, seems to be stable now. She will ne ed a stent placement on the left side to drain the left kidney and deal with the stone at a later jignesh e. She does take Topamax, maybe a component of the stone also. Allergies: TO LISINOPRIL, CAUSES NAUSEA, VOMITING. METOCLOPRAMIDE, CAUSES ANAPHYLAXIS. METFORMIN, CAUSES ITCHING AND HIVES. Home Medications: Xanax, Lipitor, Coreg, Tylenol No. 3, Flexeril, vitamin D2, Prozac, Neurontin, Sulligent ryl, Toradol, Protonix, polymyxin and trimethoprim eye drops b.i.d., potassium oral, pregabalin or Ly kayla, promethazine, Januvia, and Topamax. Past Medical/surgical History: Snh-kovkiey-fhlogddxm diabetes mellitus, right breast cancer, hyperli pidemia, , gastric bypass, right lumpectomy, right partial mastectomy. Family History: Noncontributory. Social History: Former smoker. No alcohol use. No drug use. Resides at home. Review of Systems: Ten-point review of system otherwise unremarkable. Physical Examination: Vital Signs: 98, pulse 78, respirations 20, BP 136/63, saturations 93%. General: She is alert, oriented, in no acute distress. HEENT: Atraumatic, normocephalic. Neck: Supple. Respiratory: Clear. Cardiovascular: S1, S2. Gastrointestinal: Normal bowel sounds. Soft, benign. Musculoskeletal: No clubbing, no swelling. No tenderness. Skin: No rashes. Neurologic: Alert, oriented. Lymphatics: Negative. Laboratory Data: White count was very elevated on admission 25,100, now is 24,600, about the same. H and H 11.9 and 35.9, platelet count 269. Chemistry: Sodium 135, potassium 3.5, chloride 101, carb on dioxide 25, BUN 26, creatinine 1.8, GFR 29, glucose 273. Calcium 8.3, phosphorus 4.1, magnesium 1 .6. Urine test as mentioned. CT scan as mentioned. Assessment: A 58-year-old lady with morbid obesity, status post gastric bypass with urosepsis. She has a 5 mm stone in the left mid ureter. She is currently stable. She needs drainage, cystoscopy, a nd left double-J stent placed. The patient drank some juice at noon and drank milk for breakfast. W e will wait for another 6-8 hours to do her surgery. DOMONIQUE/MILAN Voice ID: [id number] Report ID: [id number]
[2018-07-30] MEDS ORDERED: ALBUTEROL 2.5 MG/3 ML NEB SOL NEB ONE (18:17)
[2018-07-30] MEDS ORDERED: ALBUTEROL 2.5 MG/3 ML NEB SOL ONE (18:28)
[2018-07-30] MEDS ORDERED: PROPOFOL 200 MG/20 ML VIAL IV ONE (18:43)
[2018-07-30] MEDS ORDERED: FENTANYL CITR 100 MCG/2 ML ONE (18:44)
[2018-07-30] MEDS ORDERED: SUCCINYLCHOLINE 20 MG/ML (10 ML) IV ONE (18:48)
[2018-07-30] MEDS ORDERED: DEXAMETHASONE 10 MG/ML VIAL ONE (19:21)
[2018-07-30] MEDS ORDERED: ONDANSETRON HCL 40 MG/20 ML VIAL ONE ×2 (19:21)
[2018-07-30] MEDS ORDERED: NA CHLORIDE 0.9% 1,000 ML ONE (19:32)
--- NOTE | 2018-07-30 19:45 | RAD REPORT ---
EXAM DESCRIPTION: RAD - Urography Retrograde - 07/30/2018 7:35 pm CLINICAL HISTORY: STENT COMPARISON: No comparisons FINDINGS: Fluoroscopic imaging of the abdomen was performed as part of a left-sided ureter stent laura cement procedure. Details of the procedure are not available. Total fluoro time: 1 minutes and 34 seconds.
[2018-07-30] MEDS: ATORVASTATIN 40 MG TAB PO SCH (21:50)
[2018-07-30] MEDS: MELATONIN 3 MG TABLET PO SCH (23:04)
[2018-07-31] MEDS: GABAPENTIN 300 MG CAP PO SCH ×3 (00:12→17:18)
[2018-07-31] MEDS: ALBUTEROL 2.5 MG/3 ML NEB SOL NEB SCH ×4 (02:00→20:45)
[2018-07-31] MEDS: IPRATROPIUM BROM 0.5MG/2.5ML NEB SCH ×4 (02:00→20:46)
[2018-07-31] MEDS: NA CHLORIDE 0.9% 1,000 ML IV SCH (03:34)
--- NOTE | 2018-07-31 03:47 | CON ---
Date of Consultation: 07/30/2018 Chief Complaint: Obstructive uropathy, acute on chronic. History Of Present Illness: The patient came to the hospital and was found to have tachycardia and h ypotension. The patient was found to have acute heart. Blood pressure was trending down. The patie nt had generalized weakness and nausea. In the emergency room, workup revealed hydronephrosis and ob structive uropathy. The patient was diagnosed with upper respiratory infection and was started on an tibiotics. Because of fever and new onset of the flank pain, the patient came back to emergency room , and CT scan revealed left-sided nephrolithiasis with ureter and left hydronephrosis. The patient w as admitted to the hospital for IV antibiotics for urosepsis and urinary tract infection. Nephrology consultation was obtained for hydronephrosis. The patient was taking multiple blood pressure medica tions, and also she was taking Ketoralac for pain control. Review of Systems: Constitutional: Denies syncope. She had low-grade fever. Eyes: Denies vision changes. Ears, Nose, Mouth, and Throat: Denies sore throat or earache. Respiratory: Denies PND or orthopnea. Cardiovascular: Denies chest pain or palpitation. GI: Denies nausea or vomiting. : Denies dysuria or hematuria. Musculoskeletal: She is complaining of generalized weakness. Some swelling in the legs. Past Medical History: Insulin-dependent diabetes mellitus, right breast cancer, hyperlipidemia, C-se ction, gastric bypass, right lumpectomy, and right mastectomy. Social History: Former smoker. Denies alcohol or illicit drugs. Physical Examination: Vital Signs: Blood pressure 119/56, heart rate 75, and respiratory rate 18. Eyes: Anicteric sclerae. EOMI. Ears, Nose, Mouth, and Throat: Oral mucosa is moist. No pallor. Neck: Supple. No JVD. No bruits. Lungs: Crackles bilaterally at bases. Heart: S1 and S2. Abdomen: Soft and benign. Extremities: Some edema present in both legs. Laboratory Data: Hemoglobin 13.1, WBC 25.1, and platelet count is 273,000. Creatinine 1.8, BUN is 2 3, sodium 153, potassium 2.9, and glucose 324. Total bilirubin 0.5. Impression And Plan: 1.Zwgyh-nw-pejeeau kidney injury with acute changes of hydronephrosis in the left kidney. Left neph rolithiasis. The patient has multiple comorbidities including tachycardia and hypotension. Tachycar miki likely is in response to hypotension. The patient will continue adequate fluids by mouth. Lisbeth nue IV fluids to stabilize kidney function and prevent hypovolemia. 2.Urinary tract infection, urosepsis. Continue antibiotics. 3.Hypertension, is low with blood pressure medication in the hospital. The patient will have blood pressure evaluated, and antibiotic dose will be adjusted. CHEYENNE/MILAN Voice ID: [id number] Report ID: [id number]
[2018-07-31 06:06] LABS: Absolute Lymphocytes (CBC) 0.9 K/uL (0.7-4.9); Absolute Monocytes 1.1 K/uL (0.1-1.3); Absolute Neutrophil 27.5 K/uL (1.8-8.0); Basophils % 0.1 % (0-1.3); Hematocrit 35.4 % (36.0-45.0); Lymphocytes % 3.2 % (15.3-44.8); MCV 91.9 fL (80-100); MPV 8.5 fL (7.6-11.3); Monocytes % 3.6 % (3.3-12.3); RBC Red Blood Cell Count 3.85 M/uL (3.86-4.86)
[2018-07-31 06:21] LABS: Magnesium 2.1 mg/dL (1.8-2.4); Potassium 4.6 mmol/L (3.5-5.1)
[2018-07-31] MEDS ORDERED: Levofloxacin500mg IV 500 MG/100 ML BAG IV ONE (07:00)
[2018-07-31 07:42] LABS: Blood Morphology Comment NOT SEEN (NOT SEEN); Platelet Estimate ADEQ; Toxic Granulation 1+
--- NOTE | 2018-07-31 08:34 | RAD REPORT ---
EXAM DESCRIPTION: RAD - Abdomen 1 View (KUB) - 07/31/2018 7:48 am CLINICAL HISTORY: Left ureteral stent, calcification, hydronephrosis, abdominal pain COMPARISON: CT imaging July 29 FINDINGS: Double pigtail stent is in place in the left collecting system. Proximal pigtail is in the lower pole of the left kidney. A 5-6 millimeter left ureteral calcification is present. This is late ral to the L4 body which is a similar position when compared to the CT study. No other calcifications seen along the course of the stent. Bowel gas pattern is nonspecific. Sigmoid diverticulosis is present. There is significant diverticulo sis in the descending colon as well. Oral contrast is present from the July 29 CT study. No free air or pneumatosis. No bowel obstruction. Significant bony degenerative changes are present. There is partial compression of L4 and L5, age unk nown. IMPRESSION: Left ureteral stent is in good position. Previously detailed 5-6 mm calcification is still present in the mid ureter approximately L4 level. P ositioning is similar to the CT study. Compression fractures of L4 and L5 are present, age unknown.
[2018-07-31] MEDS: TOPIRAMATE 25 MG TAB PO SCH ×2 (08:51→21:21)
[2018-07-31] MEDS: PREGABALIN 75 MG CAP PO SCH ×2 (08:51→14:00)
[2018-07-31] MEDS: POTASSIUM CL SA 10 MEQ TAB PO SCH ×2 (08:51→21:03)
[2018-07-31] MEDS: CEFTRIAXONE/SWI 1gm 1 GM/10 ML SYR IV SCH ×2 (08:51→21:18)
[2018-07-31] MEDS: SITAGLIPTIN PHOS 100 MG TAB PO SCH (08:51)
[2018-07-31] MEDS: PANTOPRAZOLE 40MG TABLET PO SCH (08:51)
[2018-07-31] MEDS: CODEINE 30MG/APAP 300MG TAB PO PRN (08:52)
[2018-07-31] MEDS: FLUOXETINE 20 MG CAP PO SCH (08:52)
[2018-07-31] MEDS: ALPRAZOLAM 0.25 MG TABLET PO PRN (08:53)
[2018-07-31] MEDS: CARVEDILOL 12.5 MG TAB PO SCH ×2 (08:53→21:11)
[2018-07-31] MEDS: POLYMYXIN B SULF OPTH SCH ×2 (08:54→21:00)
[2018-07-31] MEDS: TRIMETHOPRIM OPTH SCH ×2 (08:54→21:00)
[2018-07-31] MEDS: INSULIN -REGULAR HUMAN 50 UNIT/0.5 ML ML SQ SCH ×4 (08:54→21:01)
[2018-07-31] MEDS: ENOXAPARIN 40 MG/0.4 ML SQ SCH (09:00)
[2018-07-31] MEDS ORDERED: FUROSEMIDE 20 MG/ 2ML VIAL IV ONE (16:14)
--- NOTE | 2018-07-31 16:48 | P.PN ---
Subjective Date of Service: 07/31/18 Chief Complaint: Obstructive uropathy Patient seen and examined at bedside with RN. Chart reviewed. Case discussed with urology. Patient is currently status post cystoscopy with stent placement. Overnight patient has no complaints to offer. This morning patient however does complain of having some chills. Pain has been well controlled since the procedure Review of Systems 10-point ROS is otherwise unremarkable Physical Examination - Vital Signs Temperature: 97.9 F Blood Pressure: 104/58 Pulse: 70 Respirations: 18 Pulse Ox (%): 95 - Physical Exam General: Alert, In no apparent distress HEENT: Atraumatic, PERRLA, EOMI Neck: Supple, JVD not distended Respiratory: Clear to auscultation bilaterally, Normal air movement Cardiovascular: Regular rate/rhythm, Normal S1 S2 Gastrointestinal: Normal bowel sounds, No tenderness Musculoskeletal: No tenderness, Swelling Integumentary: No rashes Neurological: Normal speech, Normal tone, Normal affect Lymphatics: No axilla or inguinal lymphadenopathy - Studies Medications List Reviewed: Yes Assessment And Plan - Current Problems (Diagnosis) (1) Sepsis Current Visit: Yes Status: Acute Plan: Most likely secondary to UTI along with nephrolithiasis -blood culture, urine culture pending at this time -currently patient on IV Rocephin will go ahead and continue that here in the hospital -will follow up with culture -hemodynamically stable at this time Qualifiers: Sepsis type: sepsis due to unspecified organism Qualified Code(s): A41.9 - Sepsis, unspecified organism (2) UTI (urinary tract infection) Current Visit: Yes Status: Acute Plan: Acute cystitis most likely secondary to obstructive uropathy -IV fluids and IV Rocephin at this time -followup with blood culture and urine culture as well Qualifiers: Urinary tract infection type: acute cystitis Hematuria presence: without hematuria Qualified Code(s): N30.00 - Acute cystitis without hematuria (3) Left nephrolithiasis Onset Date: 07/31/18 Current Visit: Yes Status: Acute Plan: Left-sided nephrolithiasis -urology consulted appreciated recommendations at this time -status post stent placement -doing well overall pain adequately managed with current pain management (4) Hydronephrosis of left kidney Onset Date: 07/31/18 Current Visit: Yes Status: Acute Plan: Hydronephrosis secondary to left kidney nephrolithiasis -IV fluids at a Kelley catheter in place (5) Obstructive uropathy Onset Date: 07/31/18 Current Visit: Yes Status: Acute Plan: Obstructive uropathy acute kidney injury -IV fluids at this time -patient status post cystoscopy with stent placement with urology - Plan Pending clinical improvement at this time. With elevated leukocytosis patient needs to continue on IV antibiotics until urine culture comes back with appropriate bacteria. Will follow his urine culture here shortly Discharge Plan: Home Plan to discharge in: 48 Hours - Code Status/Comfort Care Code Status Assessed: Yes Critical Care: No
--- NOTE | 2018-07-31 17:43 | PN ---
Date of Progress Note: 07/31/2018 Subjective: The patient was admitted with acute kidney injury secondary to obstructive uropathy, sta tus post stent placement. Physical Examination: Vital Signs: Blood pressure 131/62, pulse of 74. Chest: Clear to auscultation. Heart: S1 and S2 regular. Abdomen: Soft, nontender, morbidly obese. Extremities: Trace edema. Laboratory Data: WBC 29.5, H and H 11.6/35.4, platelets 277. Sodium 135, potassium 4.6, bicarb 22, BUN 33, creatinine 1.7, calcium 8.2. Current Medications: The patient on its include: 1.Ceftriaxone. 2.Levaquin 250 daily. 3.Promethazine. 4.Flexeril. 5.Lovenox. 6.Carvedilol. 7.Atorvastatin. 8.Gabapentin 600 t.i.d. 9.Topamax. 10.Zofran. 11.Actos. 12.IV fluid. Assessment And Plan: 1.Acute kidney injury secondary to obstructive uropathy status post stent placement. I am going to go ahead and continue on hydration. We will start the patient on Flomax and we will follow up the juan gilman. 2.Hypertension, controlled, optimal. Continue current medication. We are going to go ahead and add Flomax. 3.Nephrolithiasis with urinary tract infection. The patient culture still pending. Complicated UTI . Continue current antibiotic. We will follow up with primary. 4.Nephrolithiasis, status post stent placement. Follow up with Urology, adding Flomax. QING/MILAN Voice ID: [id number] Report ID: [id number]
[2018-07-31] MEDS: ATORVASTATIN 40 MG TAB PO SCH (21:02)
[2018-07-31] MEDS: PREGABALIN 150 MG CAP PO SCH (21:02)
[2018-07-31] MEDS: MELATONIN 3 MG TABLET PO SCH (21:12)
--- NOTE | 2018-07-31 21:40 | PN ---
Subjective: Patient says she feels better. Objective: Vital Signs: Temperature 97.9, pulse 70, respirations 18, blood pressure 104/53, sats 95 %. Laboratory shows white count still high at 29.5, H and H 11 and 35, platelet count 221. I's and O's 2130 in, output 250 recorded, positive 1880. Assessment: Status post stent, status post urosepsis, status post urolithiasis. Continues to drain bladder, may have to irrigate Kelley catheter to see why her output is so low. She may need Lasix if possible. We will continue to monitor KUB, also showed stone in place, possible for ESWL at a later date once all infection is over in 1-2 weeks. DOMONIQUE/MILAN Voice ID: [id number] Report ID: [id number]
[2018-08-01] MEDS: GABAPENTIN 300 MG CAP PO SCH ×3 (00:54→16:48)
[2018-08-01] MEDS: IPRATROPIUM BROM 0.5MG/2.5ML NEB SCH ×4 (01:55→19:28)
[2018-08-01] MEDS: ALBUTEROL 2.5 MG/3 ML NEB SOL NEB SCH ×4 (01:55→19:28)
[2018-08-01] MEDS ORDERED: Levofloxacin 250mg IV 250 MG/50 ML BAG IV SCH (07:00)
[2018-08-01] MEDS: INSULIN -REGULAR HUMAN 50 UNIT/0.5 ML ML SQ SCH ×4 (07:30→21:57)
[2018-08-01] MEDS: TRIMETHOPRIM OPTH SCH ×2 (09:00→22:13)
[2018-08-01] MEDS: POLYMYXIN B SULF OPTH SCH ×2 (09:00→22:13)
[2018-08-01 09:43] LABS: Albumin 1.5 g/dL (3.4-5.0); Phosphorus 3.6 mg/dL (2.5-4.9); Potassium 4.9 mmol/L (3.5-5.1)
[2018-08-01] MEDS: CEFTRIAXONE/SWI 1gm 1 GM/10 ML SYR IV SCH (09:59)
[2018-08-01] MEDS: CARVEDILOL 12.5 MG TAB PO SCH (10:00)
[2018-08-01] MEDS: CODEINE 30MG/APAP 300MG TAB PO PRN (10:00)
[2018-08-01] MEDS: TOPIRAMATE 25 MG TAB PO SCH ×2 (10:00→21:58)
[2018-08-01] MEDS: POTASSIUM CL SA 10 MEQ TAB PO SCH ×2 (10:01→22:15)
[2018-08-01] MEDS: PANTOPRAZOLE 40MG TABLET PO SCH (10:01)
[2018-08-01] MEDS: PREGABALIN 150 MG CAP PO SCH ×3 (10:01→21:00)
[2018-08-01] MEDS: FLUOXETINE 20 MG CAP PO SCH (10:02)
[2018-08-01] MEDS: TAMSULOSIN 0.4 MG SR CAP PO SCH (10:02)
[2018-08-01] MEDS: ENOXAPARIN 40 MG/0.4 ML SQ SCH (10:02)
[2018-08-01] MEDS: SITAGLIPTIN PHOS 100 MG TAB PO SCH (10:02)
[2018-08-01] MEDS: ALPRAZOLAM 0.25 MG TABLET PO PRN (10:03)
[2018-08-01 12:19] LABS: Absolute Monocytes 1.4 K/uL (0.1-1.3); Absolute Neutrophil 22.7 K/uL (1.8-8.0); Basophils % 0.2 % (0-1.3); Eosinophils % 0.1 % (0-4.4); Hematocrit 33.1 % (36.0-45.0); Lymphocytes % 4.1 % (15.3-44.8); MCH 30.4 pg (27.0-35.0); MPV 8.1 fL (7.6-11.3); Monocytes % 5.4 % (3.3-12.3); RBC Red Blood Cell Count 3.59 M/uL (3.86-4.86)
[2018-08-01 12:36] LABS: Albumin 1.3 g/dL (3.4-5.0); Bilirubin Total 0.2 mg/dL (0.2-1.0); Potassium 4.7 mmol/L (3.5-5.1); Protein, Total 5.8 g/dL (6.4-8.2)
[2018-08-01 12:45] LABS: Blood Morphology Comment NOT SEEN (NOT SEEN); Platelet Estimate ADEQ; Toxic Granulation 2+; Urine White Blood Cell Casts OK
[2018-08-01] MEDS ORDERED: ACETAMINOPHEN 500 MG TAB PO ONE (12:52)
[2018-08-01] MEDS ORDERED: NA CHLORIDE 0.9% 1,000 ML ONE (12:59)
[2018-08-01] MEDS: NA CHLORIDE 0.9% 1,000 ML IV SCH (13:00)
--- NOTE | 2018-08-01 15:02 | P.PN ---
Subjective Date of Service: 08/01/18 Chief Complaint: Obstructive uropathy Patient seen and examined at bedside with RN. Chart reviewed. Case discussed with urology. Patient is currently status post cystoscopy with stent placement. Overnight patient has no complaints to offer. This morning patient has been doing well overall is well. Urine culture is positive for Klebsiella blood cultures also positive for Klebsiella Review of Systems 10-point ROS is otherwise unremarkable Physical Examination - Vital Signs Temperature: 96.9 F Blood Pressure: 92/43 Pulse: 69 Respirations: 20 Pulse Ox (%): 95 - Physical Exam General: Alert, In no apparent distress HEENT: Atraumatic, PERRLA, EOMI Neck: Supple, JVD not distended Respiratory: Clear to auscultation bilaterally, Normal air movement Cardiovascular: Regular rate/rhythm, Normal S1 S2 Gastrointestinal: Normal bowel sounds, No tenderness Musculoskeletal: No tenderness Integumentary: No rashes Neurological: Normal speech, Normal tone, Normal affect Lymphatics: No axilla or inguinal lymphadenopathy - Studies Microbiology Data (last 24 hrs): 07/30/18 00:00 Clean Catch Urine Lincoln Count - Final >100,000 CFU/ML. 07/30/18 00:00 Clean Catch Urine - Final Klebsiella Pneumoniae Medications List Reviewed: Yes Assessment And Plan - Current Problems (Diagnosis) (1) Sepsis Current Visit: Yes Status: Acute Plan: Severe Sepsis. Most likely secondary to UTI and bactermia along with nephrolithiasis -blood culture, urine culture + for ESBL Klebseilla -Switched to Meropenum. PICC line placement -hemodynamically stable at this time Qualifiers: Sepsis type: sepsis due to unspecified organism Qualified Code(s): A41.9 - Sepsis, unspecified organism (2) UTI (urinary tract infection) Current Visit: Yes Status: Acute Plan: Acute cystitis most likely secondary to obstructive uropathy -IV meropenum. PICC line placement Qualifiers: Urinary tract infection type: acute cystitis Hematuria presence: without hematuria Qualified Code(s): N30.00 - Acute cystitis without hematuria (3) Left nephrolithiasis Onset Date: 07/31/18 Current Visit: Yes Status: Acute Plan: Left-sided nephrolithiasis -urology consulted appreciated recommendations at this time -status post stent placement -doing well overall pain adequately managed with current pain management (4) Hydronephrosis of left kidney Onset Date: 07/31/18 Current Visit: Yes Status: Acute Plan: Hydronephrosis secondary to left kidney nephrolithiasis -IV fluids at a Kelley catheter in place (5) Obstructive uropathy Onset Date: 07/31/18 Current Visit: Yes Status: Acute Plan: Obstructive uropathy acute kidney injury -IV fluids at this time -patient status post cystoscopy with stent placement with urology - Plan Pending clinical improvement at this time. Now with bactermia and UTI with ESBL. Started on Meropenum for 14days. PICC line placement today Discharge Plan: Other Plan to discharge in: 72 Hours - Code Status/Comfort Care Code Status Assessed: Yes Critical Care: No
--- NOTE | 2018-08-01 18:08 | PN ---
Date of Progress Note: 08/01/2018 Subjective: The patient was admitted with acute kidney injury secondary to obstructive uropathy, nephrolithiasis, UTI, toxic ATN. The patient being on hydration as status post stent placement. Physical Examination: Vital Signs: Blood pressure 118/58, pulse of 86. Chest: Clear to auscultation. Heart: S1 and S2 regular. Abdomen: Soft, nontender. Extremities: No edema. Current Medications: The patient on carvedilol 12.5 b.i.d., fluoxetine, gabapentin, ceftriaxone, promethazine, Januvia, and Flomax. This patient case discussed. The patient verbalized understanding. Discussed with the primary. Dr. Estrella, also agreed on the plan. Laboratory Data: WBC 25.2, H and H 10.9/33.1. Sodium 130, potassium 4.7, bicarb 22, BUN 34, creatinine down to 1.8. Still hyperglycemia. Urine culture growing Klebsiella pneumoniae with bacteremia. Assessment And Plan: 1. Acute kidney injury secondary to obstructive uropathy prerenal and toxic ATN, on recovery plateau. I am going to continue hydration. 2. Hypertension, controlled, optimal. Continue current medication. 3. Urinary tract infection, complicated with bacteremia. I am going to change IV medication to meropenem. I will monitor the patient. 4. Diabetes, as by primary. JUANY Voice ID: [id number] Report ID: [id number]
--- NOTE | 2018-08-01 18:23 | PN ---
Subjective: The patient says she feels better. Objective: Vital Signs: Temperature 99.5, pulse rate 86, respiratory rate 20, BP 118/58, sats 95%. Pain level 0 on 10. Laboratory Data: Her urine culture and blood culture all showed Klebsiella pneumoniae that is ESBL sensitive to Augmentin, gentamicin, cefoxitin, cefotetan , Timentin, resistance of ceftriaxone, sensitive to piperacillin/tazobactam, sensitive to meropenem and amikacin. Assessment: Klebsiella extended-spectrum beta-lactamases, urosepsis with kidney stone status post stent placement. Plan: Continue IV antibiotics. Get a PICC line placed for long-term antibiotics. Try to get this urine sterilize. Once she is infection free, we can deal with a kidney stone at a later date. For now, the stent is draining well. Kelley catheter is draining well. We will continue management. Her antibiotic was agreeable switched over to meropenem today by Dr. Estrella. DOMONIQUE/MILAN Voice ID: [id number] Report ID: [id number]
[2018-08-01] MEDS: MELATONIN 3 MG TABLET PO SCH (21:00)
[2018-08-01] MEDS ORDERED: Meropenem 1000 MG/VIAL IV SCH (21:00)
[2018-08-01] MEDS: CARVEDILOL 6.25 MG TAB PO SCH (21:00)
[2018-08-01] MEDS: Meropenem 1,000 MG in NA CHLORIDE 0.9% 100 ML IV SCH (21:51)
[2018-08-01] MEDS: ATORVASTATIN 40 MG TAB PO SCH (22:14)
[2018-08-02] MEDS: NA CHLORIDE 0.9% 1,000 ML IV SCH ×2 (00:16→09:21)
[2018-08-02] MEDS: GABAPENTIN 300 MG CAP PO SCH ×2 (00:17→09:00)
[2018-08-02] MEDS: ALBUTEROL 2.5 MG/3 ML NEB SOL NEB SCH ×4 (01:01→19:19)
[2018-08-02] MEDS: IPRATROPIUM BROM 0.5MG/2.5ML NEB SCH ×4 (01:01→19:19)
[2018-08-02] MEDS ORDERED: SODIUM CHLORIDE 0.9% 10ML INJ IV PRN ×2 (04:00)
[2018-08-02] MEDS ORDERED: LIDOCAINE 1% MPF 5 ML VIAL IM PRN (04:00)
[2018-08-02 05:26] LABS: Absolute Lymphocytes (CBC) 1.3 K/uL (0.7-4.9); Absolute Monocytes 1.6 K/uL (0.1-1.3); Absolute Neutrophil 18.1 K/uL (1.8-8.0); Basophils % 0.1 % (0-1.3); Eosinophils % 0.2 % (0-4.4); Lymphocytes % 6.2 % (15.3-44.8); MCH 29.7 pg (27.0-35.0); MCV 91.6 fL (80-100); MPV 8.6 fL (7.6-11.3); Monocytes % 7.6 % (3.3-12.3); RBC Red Blood Cell Count 3.72 M/uL (3.86-4.86)
[2018-08-02 05:47] LABS: Albumin 1.4 g/dL (3.4-5.0); Bilirubin Total 0.3 mg/dL (0.2-1.0); Phosphorus 3.3 mg/dL (2.5-4.9); Potassium 5.1 mmol/L (3.5-5.1); Protein, Total 6.2 g/dL (6.4-8.2)
--- NOTE | 2018-08-02 06:30 | RAD REPORT ---
EXAM DESCRIPTION: RAD - Chest Single View - 08/02/2018 2:51 am CLINICAL HISTORY: PICC line placement A preliminary report was provided at the time of the study and reviewed prior to final report. COMPARISON: None. FINDINGS: Portable chest was obtained following placement of a left upper extremity PICC line. The c atheter tip is in the mid SVC.
[2018-08-02] MEDS: INSULIN -REGULAR HUMAN 50 UNIT/0.5 ML ML SQ SCH ×4 (07:30→20:41)
[2018-08-02] MEDS: POTASSIUM CL SA 10 MEQ TAB PO SCH ×2 (09:00→19:47)
[2018-08-02] MEDS: FLUOXETINE 20 MG CAP PO SCH (09:00)
[2018-08-02] MEDS: CARVEDILOL 6.25 MG TAB PO SCH ×2 (09:00→20:20)
[2018-08-02] MEDS: TOPIRAMATE 25 MG TAB PO SCH (09:00)
[2018-08-02] MEDS: PREGABALIN 150 MG CAP PO SCH ×2 (09:00→13:24)
[2018-08-02] MEDS ORDERED: SODIUM CHLORIDE 0.9% 10ML INJ IV SCH (09:00)
[2018-08-02] MEDS: TRIMETHOPRIM OPTH SCH ×2 (09:21→21:00)
[2018-08-02] MEDS: POLYMYXIN B SULF OPTH SCH ×2 (09:21→21:00)
[2018-08-02] MEDS: Meropenem 1,000 MG in NA CHLORIDE 0.9% 100 ML IV SCH ×2 (09:21→20:20)
[2018-08-02] MEDS: ENOXAPARIN 40 MG/0.4 ML SQ SCH (09:24)
[2018-08-02] MEDS: TAMSULOSIN 0.4 MG SR CAP PO SCH (09:25)
[2018-08-02] MEDS: PANTOPRAZOLE 40MG TABLET PO SCH (09:25)
[2018-08-02] MEDS: SITAGLIPTIN PHOS 100 MG TAB PO SCH (09:25)
[2018-08-02] MEDS: ACETAMINOPHEN 500 MG TAB PO PRN (10:18)
[2018-08-02 11:06] LABS: Arterial Blood Carboxyhemoglob 1.3 % (0-1.5); Blood Gas Oxyhemoglobin 95.3 % (94-97); Blood O2 Saturation 97.4 % (92-98.5)
[2018-08-02 12:46] LABS: Barbiturates NEGATIVE (NEGATIVE); Benzodiazepines NEGATIVE (NEGATIVE); Cocaine NEGATIVE (NEGATIVE); METHAMPHETAM NEGATIVE (NEGATIVE); Methadone NEGATIVE (NEGATIVE); Opiates POSITIVE (NEGATIVE); Phencyclidine NEGATIVE (NEGATIVE); THC Cannibis NEGATIVE (NEGATIVE)
--- NOTE | 2018-08-02 13:34 | RAD REPORT ---
EXAM DESCRIPTION: RAD - Chest Single View - 08/02/2018 1:12 pm CLINICAL HISTORY: Lethargy, shortness of breath COMPARISON: August 02 TECHNIQUE: AP portable chest image was obtained 1053 hours . FINDINGS: Lung volumes are very low. Respiratory motion degradation is present. No new or progressiv e interstitial or alveolar process suspected in the right lung field or upper left lung field. Left b ase is substantially obscured by motion, shallow inspiration and overlying heart. Gross changes not s uspected. Small left pleural effusion could be present. Heart size within normal limits. Rotation dis torts the cardiomediastinal silhouette. No pneumothorax. No acute bony abnormality seen. No acute aor tic findings suspected. IMPRESSION: Exam is substantially limited by motion and shallow inspiration. No gross change from ea rlier in the day.
--- NOTE | 2018-08-02 14:52 | P.PN ---
Subjective Date of Service: 08/02/18 Chief Complaint: Obstructive uropathy Patient seen and examined at bedside with RN. Chart reviewed. Case discussed with urology. Patient is currently status post cystoscopy with stent placement. Urine and blood culture positive for Klebsiella. Patient this morning did appear to be lethargic. Has been taking gabapentin and Lyrica here in the hospital. Both of which were stopped. ABGs were ordered. Review of Systems 10-point ROS is otherwise unremarkable Physical Examination - Vital Signs Temperature: 101.4 F Blood Pressure: 112/56 Pulse: 101 Respirations: 20 Pulse Ox (%): 95 - Physical Exam General: Oriented x3, Other (Lethargic ) HEENT: Atraumatic Neck: Supple, JVD not distended Respiratory: Clear to auscultation bilaterally, Normal air movement Cardiovascular: Regular rate/rhythm, Normal S1 S2 Gastrointestinal: Normal bowel sounds, Soft and benign, Non-distended, No tenderness Musculoskeletal: No tenderness Integumentary: No rashes Neurological: Normal tone, Normal affect Lymphatics: No axilla or inguinal lymphadenopathy - Studies Microbiology Data (last 24 hrs): 07/30/18 00:00 Clean Catch Urine [place] Count - Final >100,000 CFU/ML. 07/30/18 00:00 Clean Catch Urine - Final Klebsiella Pneumoniae Medications List Reviewed: Yes Assessment And Plan - Current Problems (Diagnosis) (1) Sepsis Current Visit: Yes Status: Acute Plan: Severe Sepsis. Most likely secondary to UTI and bactermia along with nephrolithiasis -blood culture, urine culture + for ESBL Klebseilla -Switched to Meropenum. PICC line placement -hemodynamically stable at this time -Lethargic this AM - Ordered CBC, CMP and Ammonia along with ABG Qualifiers: Sepsis type: sepsis due to unspecified organism Qualified Code(s): A41.9 - Sepsis, unspecified organism (2) UTI (urinary tract infection) Current Visit: Yes Status: Acute Plan: Acute cystitis most likely secondary to obstructive uropathy -IV meropenum. PICC line placed Qualifiers: Urinary tract infection type: acute cystitis Hematuria presence: without hematuria Qualified Code(s): N30.00 - Acute cystitis without hematuria (3) Left nephrolithiasis Onset Date: 07/31/18 Current Visit: Yes Status: Acute Plan: Left-sided nephrolithiasis -urology consulted appreciated recommendations at this time -status post stent placement -doing well overall pain adequately managed with current pain management (4) Hydronephrosis of left kidney Onset Date: 07/31/18 Current Visit: Yes Status: Acute Plan: Hydronephrosis secondary to left kidney nephrolithiasis -IV fluids at a Kelley catheter in place (5) Obstructive uropathy Onset Date: 07/31/18 Current Visit: Yes Status: Acute Plan: Obstructive uropathy acute kidney injury -IV fluids at this time -patient status post cystoscopy with stent placement with urology - Plan Pending clinical improvement at this time. Now with bactermia and UTI with ESBL. Started on Meropenum for 14days. PICC line placed Discharge Plan: Home Plan to discharge in: 48 Hours - Code Status/Comfort Care Code Status Assessed: Yes Critical Care: No
[2018-08-02 15:30] LABS: Absolute Lymphocytes (CBC) 1.3 K/uL (0.7-4.9); Absolute Monocytes 1.6 K/uL (0.1-1.3); Absolute Neutrophil 17.7 K/uL (1.8-8.0); Basophils % 0.1 % (0-1.3); Eosinophils % 0.1 % (0-4.4); Hematocrit 33.8 % (36.0-45.0); Lymphocytes % 6.2 % (15.3-44.8); MCV 91.7 fL (80-100); Monocytes % 7.8 % (3.3-12.3); RBC Red Blood Cell Count 3.69 M/uL (3.86-4.86)
[2018-08-02 15:45] LABS: Bilirubin Total 0.3 mg/dL (0.2-1.0); Potassium 5.1 mmol/L (3.5-5.1); Protein, Total 6.1 g/dL (6.4-8.2)
[2018-08-02 15:46] LABS: Albumin 1.3 g/dL (3.4-5.0)
--- NOTE | 2018-08-02 16:03 | RAD REPORT ---
EXAM DESCRIPTION: CT - Head Brain Wo Cont - 08/02/2018 3:51 pm CLINICAL HISTORY: altered mental status Drowsiness COMPARISON: No comparisons TECHNIQUE: All CT scans are performed using dose optimization technique as appropriate and may inclu de automated exposure control or mA/KV adjustment according to patient size. FINDINGS: No intracranial hemorrhage, hydrocephalus or extra-axial fluid collection.No areas of brai n edema or evidence of midline shift. 2-3 cm mucous retention cyst versus polyp is seen in the right maxillary antrum. The paranasal sinuse s and mastoids are otherwise clear. The calvarium is intact. IMPRESSION: No acute intracranial abnormality.
[2018-08-02 16:46] LABS: Blood Morphology Comment NOT SEEN (NOT SEEN); Platelet Estimate ADEQ; Toxic Granulation NOTED; Urine White Blood Cell Casts OK
--- NOTE | 2018-08-02 17:52 | PN ---
Subjective: The patient is resting. She is receiving physical therapy. Her white count is down to 21.1 today. Creatinine is down to 1.4 from 1.8. Objective: Vital Signs: Temperature 101.4, heart rate 101, respirations 20, blood pressure 112/66, 95% saturation. Assessment: Urosepsis with Klebsiella Extended-spectrum beta-lactamases. PICC line placement for ho me IV antibiotics. KUB show stone is well positioned at L4 by the stent. Stent is in good position. Possible ESWL candidate. Her body habitus may not allow it. She may have to end up getting a uret eroscopy and laser. DOMONIQUE/MILAN Voice ID: [id number] Report ID: [id number]
[2018-08-02] MEDS: ATORVASTATIN 40 MG TAB PO SCH (20:20)
--- NOTE | 2018-08-02 21:22 | CON ---
INFECTIOUS DISEASE CONSULT History Of Present Illness: This is a 58-year-old female I was consulted for urinary tract infection secondary to Klebsiella pneumoniae and bacteremia, secondary to Klebsiella pneumoniae. The patient has an ESBL bacteria and currently being treated with meropenem. As per family, the patient was tota lly confused and not able to respond much when she was brought in. Denies any headache, nausea, vomi ting, chest pain. Having some abdominal discomfort. The patient has significant history of recent g astric bypass surgery. Past Medical History: Consists of morbid obesity; diabetes mellitus; right breast cancer; hyperlipid emia; , gastric bypass; right lumpectomy; right partial mastectomy; tobacco positive, quit 4 years ago. Social History: Tobacco, positive. Alcohol, negative. Family History: Noncontributory. Medications: Meropenem. See MARs for other medication. Allergies: LISINOPRIL, METOCLOPRAMIDE, METFORMIN. Review of Systems: A 10-point review was performed. Physical Examination: General: This is a 58-year-old female, lying in bed, not in any acute cardiopulmonary distress. Vital Signs: Temperature 101.4, pulse 101, respiration 20, blood pressure 112/56. HEENT: Unremarkable. Neck: Supple. Lungs: Basal crackles. Heart: S1, S2. Regular. Abdomen: Soft, nontender. Bowel sounds positive. Extremity: No edema. Laboratory Data: Shows WBC 20,600, hemoglobin 11.1, platelets are 311. Chemistry shows sodium 136, potassium 5.1, chloride 106, bicarb 26, BUN 26, creatinine 1.4, glucose 195. Chest x-ray done on shows PICC line placement in good position. CT head: No acute intracranial abnormalities. Assessment And Plan: Multidrug resistant urinary tract infection and bacteremia, secondary to Klebsi willie pneumoniae. Continue meropenem, total course of 2-4 weeks depending on patient response, leukoc ytosis, fever. Current prognosis guarded. We will monitor the patient closely. Thank you Dr. Estrella for consult. DENILSON/MILAN Voice ID: [id number] Report ID: [id number]
--- NOTE | 2018-08-02 22:53 | P.PN ---
Subjective Date of Service: 08/02/18 Chief Complaint: Obstructive uropathy Pt with urosespis and baceremia 2/2 obstructive uropathy cont to spike fever Cr improving cont IVF F/U with urology Physical Examination - Vital Signs Temperature: 97.2 F Blood Pressure: 155/67 Pulse: 78 Respirations: 16 Pulse Ox (%): 99 - Physical Exam General: Oriented x3, Mild distress, Obese HEENT: Atraumatic Neck: Supple, Without JVD or thyroid abnormality Respiratory: Clear to auscultation bilaterally, Normal air movement Cardiovascular: No edema, Regular rate/rhythm, Normal S1 S2, No rubs, No murmurs Gastrointestinal: Normal bowel sounds - Studies Medications List Reviewed: Yes Assessment And Plan - Current Problems (Diagnosis) (1) Hydronephrosis of left kidney Onset Date: 07/31/18 Current Visit: Yes Status: Acute (2) Obstructive uropathy Onset Date: 07/31/18 Current Visit: Yes Status: Acute (3) Sepsis Current Visit: Yes Status: Acute Qualifiers: Sepsis type: sepsis due to unspecified organism Qualified Code(s): A41.9 - Sepsis, unspecified organism (4) UTI (urinary tract infection) Current Visit: Yes Status: Acute Qualifiers: Urinary tract infection type: acute cystitis Hematuria presence: without hematuria Qualified Code(s): N30.00 - Acute cystitis without hematuria - Plan Assessment And Plan: Acute kidney injury secondary to obstructive uropathy Cr baseline ~1.0 Cr improving F/u iwth urology Adjust meds as per RFT HTN acceptable Urosepsis Bcx and Ucx: klebsiella ESBL on merrem will try to avoid gentamicin for as RFT is not at baseline urlogy evaluation DM as per primary
[2018-08-03] MEDS: ALBUTEROL 2.5 MG/3 ML NEB SOL NEB SCH ×4 (01:50→19:52)
[2018-08-03] MEDS: IPRATROPIUM BROM 0.5MG/2.5ML NEB SCH ×4 (01:50→19:52)
[2018-08-03] MEDS: PIPER/TAZO/NS 3.375gm 3.375 GM/100 ML BAG IV SCH ×2 (02:41→09:57)
[2018-08-03 06:13] LABS: Absolute Lymphocytes (CBC) 1.2 K/uL (0.7-4.9); Absolute Monocytes 1.3 K/uL (0.1-1.3); Basophils % 0.1 % (0-1.3); Eosinophils % 0.6 % (0-4.4); Lymphocytes % 7.3 % (15.3-44.8); MCH 30.6 pg (27.0-35.0); MCV 91.3 fL (80-100); MPV 8.3 fL (7.6-11.3); Monocytes % 7.7 % (3.3-12.3); RBC Red Blood Cell Count 3.61 M/uL (3.86-4.86)
[2018-08-03 06:25] LABS: Albumin 1.3 g/dL (3.4-5.0); Bilirubin Total 0.2 mg/dL (0.2-1.0); Phosphorus 3.6 mg/dL (2.5-4.9); Potassium 4.7 mmol/L (3.5-5.1); Protein, Total 6.1 g/dL (6.4-8.2)
[2018-08-03] MEDS: INSULIN -REGULAR HUMAN 50 UNIT/0.5 ML ML SQ SCH ×4 (07:30→21:00)
[2018-08-03] MEDS: CARVEDILOL 6.25 MG TAB PO SCH ×2 (09:55→21:05)
[2018-08-03] MEDS: SITAGLIPTIN PHOS 100 MG TAB PO SCH (09:56)
[2018-08-03] MEDS: POTASSIUM CL SA 10 MEQ TAB PO SCH ×2 (09:56→21:04)
[2018-08-03] MEDS: POLYMYXIN B SULF OPTH SCH ×2 (09:56→21:05)
[2018-08-03] MEDS: ENOXAPARIN 40 MG/0.4 ML SQ SCH (09:56)
[2018-08-03] MEDS: TAMSULOSIN 0.4 MG SR CAP PO SCH (09:56)
[2018-08-03] MEDS: TRIMETHOPRIM OPTH SCH ×2 (09:56→21:05)
[2018-08-03] MEDS: Meropenem 1,000 MG in NA CHLORIDE 0.9% 100 ML IV SCH ×2 (09:56→21:04)
[2018-08-03] MEDS: FLUOXETINE 20 MG CAP PO SCH (09:57)
[2018-08-03] MEDS: PANTOPRAZOLE 40MG TABLET PO SCH (09:57)
--- NOTE | 2018-08-03 10:14 | PN ---
Subjective: Patient is resting in bed, comfortable. Objective: VITAL SIGNS: Stable. Temperature is 97.3, pulse 62, respirations 16, BP 139/63. She shin s 98% sats. Laboratory Data: Creatinine is down to 1.1 from 1.4 yesterday. White blood cell count is down to 16 .6 from 20.6 yesterday. Assessment: Status post stent, urosepsis. Plan: Continue IV antibiotics for Klebsiella ESBL. The patient will be here in Monday we could att empt to do ESWL plus or minus ureteroscopy laser of stone. DOMONIQUE/MILAN Voice ID: [id number] Report ID: [id number]
--- NOTE | 2018-08-03 13:56 | P.PN ---
Subjective Date of Service: 08/03/18 Chief Complaint: Obstructive uropathy Patient seen and examined at bedside with RN. Chart reviewed. Case discussed with urology. Patient this morning is feeling much better than before. Is fully alert and oriented x3. Will attempt to get patient out of bed today ambulate with PT as well. Review of Systems 10-point ROS is otherwise unremarkable Physical Examination - Vital Signs Temperature: 97.0 F Blood Pressure: 171/75 Pulse: 78 Respirations: 25 Pulse Ox (%): 96 - Physical Exam General: Alert, In no apparent distress, Obese HEENT: Atraumatic, PERRLA, EOMI Neck: Supple, JVD not distended Respiratory: Clear to auscultation bilaterally, Normal air movement Cardiovascular: Regular rate/rhythm, Normal S1 S2 Gastrointestinal: Normal bowel sounds, No tenderness Musculoskeletal: No tenderness Integumentary: No rashes Neurological: Normal speech, Normal tone, Normal affect Lymphatics: No axilla or inguinal lymphadenopathy - Studies Medications List Reviewed: Yes Assessment And Plan - Current Problems (Diagnosis) (1) Sepsis Current Visit: Yes Status: Acute Plan: Severe Sepsis. Most likely secondary to UTI and bactermia along with nephrolithiasis -blood culture, urine culture + for ESBL Klebseilla -Switched to Meropenum. PICC line placement -hemodynamically stable at this time -Lethargic this AM - Ordered CBC, CMP and Ammonia along with ABG Qualifiers: Sepsis type: sepsis due to unspecified organism Qualified Code(s): A41.9 - Sepsis, unspecified organism (2) UTI (urinary tract infection) Current Visit: Yes Status: Acute Plan: Acute cystitis most likely secondary to obstructive uropathy -IV meropenum. PICC line placed Qualifiers: Urinary tract infection type: acute cystitis Hematuria presence: without hematuria Qualified Code(s): N30.00 - Acute cystitis without hematuria (3) Left nephrolithiasis Onset Date: 07/31/18 Current Visit: Yes Status: Acute Plan: Left-sided nephrolithiasis -urology consulted appreciated recommendations at this time -status post stent placement. Removal planned on Monday -doing well overall pain adequately managed with current pain management (4) Hydronephrosis of left kidney Onset Date: 07/31/18 Current Visit: Yes Status: Acute Plan: Hydronephrosis secondary to left kidney nephrolithiasis -IV fluids at a Kelley catheter in place (5) Obstructive uropathy Onset Date: 07/31/18 Current Visit: Yes Status: Acute Plan: Obstructive uropathy acute kidney injury -IV fluids at this time -patient status post cystoscopy with stent placement with urology - Plan Pending clinical improvement at this time. Now with bactermia and UTI with ESBL. Started on Meropenum for 14days. PICC line placed Discharge Plan: Other Plan to discharge in: 72 Hours - Code Status/Comfort Care Code Status Assessed: Yes Critical Care: No
--- NOTE | 2018-08-03 17:22 | PN ---
Subjective: The patient lying in bed, feels much better today. Denies any headache, nausea, vomitin g, chest pain, abdominal pain, constipation, or diarrhea. Objective: Vital Signs: Temperature 97, pulse 78, respirations 18, blood pressure 171/75. Lungs: Basal crackles. Heart: S1, S2. Regular. Abdomen: Soft, nontender. Bowel sounds positive. Extremities: Trace edema. Laboratory Data: WBC 54184 down from 20,000, hemoglobin 11, platelets are 304. Chemistry shows sodi um 139, potassium 4.7, chloride 106, bicarb 27, BUN 23, creatinine 1.1, glucose 162. Current Medications: Include meropenem and Zosyn. We will recommend to DC Zosyn. We will follow. Assessment And Plan: Urinary tract infection, bacteremia secondary to Klebsiella pneumoniae. Contin ue meropenem. Discontinue Zosyn. We will follow the patient closely. Leukocytosis, improving. NF/MODL Voice ID: [id number] Report ID: [id number]
[2018-08-03] MEDS: ATORVASTATIN 40 MG TAB PO SCH (21:06)
--- NOTE | 2018-08-03 22:04 | P.PN ---
Subjective Date of Service: 08/03/18 Chief Complaint: Obstructive uropathy Pt with urosespis and baceremia 2/2 obstructive uropathy cont to spike fever Cr improving cont IVF F/U with urology possible ESWL +/- uretroscopy on Monday Physical Examination - Vital Signs Temperature: 97.9 F Blood Pressure: 143/67 Pulse: 88 Respirations: 16 Pulse Ox (%): 96 - Physical Exam General: Oriented x3, Mild distress HEENT: Atraumatic Neck: Supple Respiratory: Clear to auscultation bilaterally Cardiovascular: No edema, Regular rate/rhythm - Studies Medications List Reviewed: Yes Assessment And Plan - Current Problems (Diagnosis) (1) Hydronephrosis of left kidney Onset Date: 07/31/18 Current Visit: Yes Status: Acute (2) Obstructive uropathy Onset Date: 07/31/18 Current Visit: Yes Status: Acute (3) Sepsis Current Visit: Yes Status: Acute Qualifiers: Sepsis type: sepsis due to unspecified organism Qualified Code(s): A41.9 - Sepsis, unspecified organism (4) UTI (urinary tract infection) Current Visit: Yes Status: Acute Qualifiers: Urinary tract infection type: acute cystitis Hematuria presence: without hematuria Qualified Code(s): N30.00 - Acute cystitis without hematuria - Plan Assessment And Plan: Acute kidney injury secondary to obstructive uropathy Cr at baseline now Cr baseline ~1.0 Cr improving F/u with urology Adjust meds as per RFT Paln for ESWL +/- uretroscopy on Monday HTN will add amlodipine Urosepsis Bcx and Ucx: klebsiella ESBL on merrem urlogy evaluation DM as per primary
[2018-08-04] MEDS: IPRATROPIUM BROM 0.5MG/2.5ML NEB SCH ×4 (02:05→20:00)
[2018-08-04] MEDS: ALBUTEROL 2.5 MG/3 ML NEB SOL NEB SCH ×4 (02:05→20:00)
[2018-08-04 05:44] LABS: Absolute Lymphocytes (CBC) 1.3 K/uL (0.7-4.9); Absolute Monocytes 1.2 K/uL (0.1-1.3); Absolute Neutrophil 12.1 K/uL (1.8-8.0); Basophils % 0.2 % (0-1.3); Eosinophils % 0.9 % (0-4.4); Hematocrit 32.8 % (36.0-45.0); Lymphocytes % 8.7 % (15.3-44.8); MCH 30.8 pg (27.0-35.0); MCV 90.1 fL (80-100); MPV 7.9 fL (7.6-11.3); Monocytes % 7.9 % (3.3-12.3); RBC Red Blood Cell Count 3.64 M/uL (3.86-4.86)
[2018-08-04 06:03] LABS: Albumin 1.4 g/dL (3.4-5.0); Bilirubin Total 0.3 mg/dL (0.2-1.0); Magnesium 1.9 mg/dL (1.8-2.4); Phosphorus 3.1 mg/dL (2.5-4.9); Potassium 4.5 mmol/L (3.5-5.1)
[2018-08-04] MEDS: INSULIN -REGULAR HUMAN 50 UNIT/0.5 ML ML SQ SCH ×4 (07:30→20:34)
[2018-08-04] MEDS: CARVEDILOL 6.25 MG TAB PO SCH ×2 (08:57→20:33)
[2018-08-04] MEDS: POTASSIUM CL SA 10 MEQ TAB PO SCH ×2 (08:58→20:33)
[2018-08-04] MEDS: TAMSULOSIN 0.4 MG SR CAP PO SCH (08:58)
[2018-08-04] MEDS: AMLODIPINE 5 MG TAB PO SCH (08:58)
[2018-08-04] MEDS: Meropenem 1,000 MG in NA CHLORIDE 0.9% 100 ML IV SCH ×2 (08:58→20:33)
[2018-08-04] MEDS: ENOXAPARIN 40 MG/0.4 ML SQ SCH (08:58)
[2018-08-04] MEDS: SITAGLIPTIN PHOS 100 MG TAB PO SCH (08:58)
[2018-08-04] MEDS: PANTOPRAZOLE 40MG TABLET PO SCH (08:59)
[2018-08-04] MEDS: FLUOXETINE 20 MG CAP PO SCH (08:59)
[2018-08-04] MEDS: TRIMETHOPRIM OPTH SCH ×2 (08:59→20:34)
[2018-08-04] MEDS: POLYMYXIN B SULF OPTH SCH ×2 (08:59→20:34)
--- NOTE | 2018-08-04 10:52 | P.PN ---
Subjective Date of Service: 08/04/18 Chief Complaint: Obstructive uropathy Patient seen and examined at bedside with RN. Chart reviewed. Case discussed with urology. Patient this morning is feeling much better than before. Will attempt to get patient out of bed today ambulate with PT as well. Review of Systems 10-point ROS is otherwise unremarkable Physical Examination - Vital Signs Temperature: 97.0 F Blood Pressure: 151/72 Pulse: 78 Respirations: 24 Pulse Ox (%): 95 - Physical Exam General: Alert, In no apparent distress HEENT: Atraumatic, PERRLA, EOMI Neck: Supple, JVD not distended Respiratory: Clear to auscultation bilaterally, Normal air movement Cardiovascular: Regular rate/rhythm, Normal S1 S2 Gastrointestinal: Normal bowel sounds, No tenderness Musculoskeletal: No tenderness Integumentary: No rashes Neurological: Normal speech, Normal tone, Normal affect Lymphatics: No axilla or inguinal lymphadenopathy - Studies Medications List Reviewed: Yes Assessment And Plan - Current Problems (Diagnosis) (1) Sepsis Current Visit: Yes Status: Acute Plan: Severe Sepsis. Most likely secondary to UTI and bactermia along with nephrolithiasis -blood culture, urine culture + for ESBL Klebseilla -Switched to Meropenum. -hemodynamically stable at this time -Doing well. -Pending Placement Qualifiers: Sepsis type: sepsis due to unspecified organism Qualified Code(s): A41.9 - Sepsis, unspecified organism (2) UTI (urinary tract infection) Current Visit: Yes Status: Acute Plan: Acute cystitis most likely secondary to obstructive uropathy -IV meropenum. PICC line placed Qualifiers: Urinary tract infection type: acute cystitis Hematuria presence: without hematuria Qualified Code(s): N30.00 - Acute cystitis without hematuria (3) Left nephrolithiasis Onset Date: 07/31/18 Current Visit: Yes Status: Acute Plan: Left-sided nephrolithiasis -urology consulted appreciated recommendations at this time -status post stent placement. Removal planned on Monday -doing well overall pain adequately managed with current pain management (4) Hydronephrosis of left kidney Onset Date: 07/31/18 Current Visit: Yes Status: Acute Plan: Hydronephrosis secondary to left kidney nephrolithiasis -IV fluids at a Kelley catheter in place (5) Obstructive uropathy Onset Date: 07/31/18 Current Visit: Yes Status: Acute Plan: Obstructive uropathy acute kidney injury -IV fluids at this time -patient status post cystoscopy with stent placement with urology - Plan Pending clinical improvement at this time. Now with bactermia and UTI with ESBL. Started on Meropenum for 14days. PICC line placed. Pending placement and ESWL on monday for stent Removal Discharge Plan: Home Plan to discharge in: 48 Hours - Code Status/Comfort Care Code Status Assessed: Yes Critical Care: No
[2018-08-04] MEDS: ONDANSETRON 4 MG/2 ML VIAL IV PRN ×2 (12:13→19:09)
--- NOTE | 2018-08-04 20:06 | PN ---
Subjective: The patient is doing well. She is awake, feels good. Objective: Vital Signs: Temperature AFEB, pulse 78, respirations 24, BP 151/ 72. Laboratory Data: White count was slightly above normal at 14.7. Hemoglobin and hematocrit 11 and 33, platelets 353. BUN and creatinine 16 and 1.0. Glucose 170. She has positive blood cultures. Positive urine culture for ESBL Klebsiella. She is on IV meropenem with a PICC line placed. Assessment: 1. Urosepsis. 2. Extended spectrum beta-lactamase Klebsiella. Plan: Continue PICC line, IV medication. She is a candidate for possible ESWL plus or minus ureteroscopy, laser lithotripsy of stone on Monday. DOMONIQUE/MILAN Voice ID: [id number] Report ID: [id number] MTDD
[2018-08-04] MEDS: ATORVASTATIN 40 MG TAB PO SCH (20:32)
[2018-08-04] MEDS: MELATONIN 3 MG TABLET PO PRN (21:44)
[2018-08-05] MEDS: IPRATROPIUM BROM 0.5MG/2.5ML NEB SCH ×4 (01:52→20:09)
[2018-08-05] MEDS: ALBUTEROL 2.5 MG/3 ML NEB SOL NEB SCH ×4 (01:52→20:10)
--- NOTE | 2018-08-05 03:13 | PN ---
Date of Progress Note: 08/04/2018 Chief Complaint: Urosepsis, bacteremia, obstructive uropathy. Subjective: Patient is on IV fluids and antibiotics. Patient was evaluated with urologist for possi ble ESWL plus and had ureteroscopy on Monday. Patient was found to have a left kidney hydronephrosi s and is on antibiotics for urinary tract infection. Review of Systems: Denies cough, hemoptysis. Denies chest pain or palpitation. Physical Examination: Vital Signs: Blood pressure 140/70, heart rate 97.1, respiratory rate 16, SpO2 of 96%. Lungs: Clear to auscultation bilaterally. Heart: S1, S2. Abdomen: Soft, benign. Extremities: No edema. Laboratory Data: Hemoglobin 11.2, WBC 14.7, platelet count is 353,000. Sodium 135, potassium 4.5, c hloride 103, CO2 of 27, BUN 16, creatinine 1.00, phosphorus 3.1, calcium 8.0. Impression And Plan: 1.Urosepsis, obstructive uropathy, hydronephrosis, renal function has improved. Patient developed a cute on chronic kidney injury. Renal function is gradually improving. Creatinine level on arrival t o [facility] was elevated up to 1.8 over last 48 hours. Creatinine level has improved from 1.4 to 1.0. Electrolytes stable. Monitor electrolytes and adjust IV fluids accordingly. 2.Hypoalbuminemia. Increase p.o. protein intake and check the protein screen to rule out nephrotic range proteinuria. Urinalysis showed urine protein 3+, reevaluate and check urine protein creatinine ratio. CHEYENNE/MILAN Voice ID: [id number] Report ID: [id number]
[2018-08-05 06:20] LABS: Albumin 1.6 g/dL (3.4-5.0); Phosphorus 3.3 mg/dL (2.5-4.9); Potassium 4.7 mmol/L (3.5-5.1)
[2018-08-05] MEDS: INSULIN -REGULAR HUMAN 50 UNIT/0.5 ML ML SQ SCH ×4 (07:30→21:00)
[2018-08-05] MEDS: CARVEDILOL 6.25 MG TAB PO SCH ×2 (08:15→21:03)
[2018-08-05] MEDS: POTASSIUM CL SA 10 MEQ TAB PO SCH ×2 (08:15→21:03)
[2018-08-05] MEDS: TAMSULOSIN 0.4 MG SR CAP PO SCH (08:15)
[2018-08-05] MEDS: SITAGLIPTIN PHOS 100 MG TAB PO SCH (08:15)
[2018-08-05] MEDS: POLYMYXIN B SULF OPTH SCH ×2 (08:16→21:03)
[2018-08-05] MEDS: PANTOPRAZOLE 40MG TABLET PO SCH (08:16)
[2018-08-05] MEDS: Meropenem 1,000 MG in NA CHLORIDE 0.9% 100 ML IV SCH ×2 (08:16→21:03)
[2018-08-05] MEDS: ENOXAPARIN 40 MG/0.4 ML SQ SCH (08:16)
[2018-08-05] MEDS: TRIMETHOPRIM OPTH SCH ×2 (08:16→21:03)
[2018-08-05] MEDS: FLUOXETINE 20 MG CAP PO SCH (08:16)
[2018-08-05] MEDS: AMLODIPINE 5 MG TAB PO SCH (08:16)
--- NOTE | 2018-08-05 08:22 | PN ---
Subjective: The patient is resting, doing well. Objective: Afebrile. Vital signs stable. Diagnostic Data: BUN and creatinine down to 11 and 0.9. History of Klebsiella ESBL. She is on IV m eropenem via PICC line. She has a stone in the left ureter by the stent measuring approximately 5-6 mm at the level of L4. Assessment: A 5 to 6 mm stone left mid ureter by stent at level L4. Plan: To do attempt left ESWL on Monday. If not able to do because of the body habitus, we can try to do ureteroscopy and laser on her. We will need to stop her anticoagulation 24 hours prior. Shelia conway informed consent. DOMONIQUE/MILAN Voice ID: [id number] Report ID: [id number]
[2018-08-05] MEDS: ONDANSETRON 4 MG/2 ML VIAL IV PRN (11:17)
[2018-08-05 12:05] LABS: Absolute Lymphocytes (CBC) 1.1 K/uL (0.7-4.9); Absolute Monocytes 0.9 K/uL (0.1-1.3); Absolute Neutrophil 8.9 K/uL (1.8-8.0); Basophils % 0.4 % (0-1.3); Eosinophils % 0.9 % (0-4.4); Lymphocytes % 9.9 % (15.3-44.8); MCH 29.8 pg (27.0-35.0); MPV 8.1 fL (7.6-11.3); Monocytes % 7.8 % (3.3-12.3); RBC Red Blood Cell Count 3.88 M/uL (3.86-4.86)
--- NOTE | 2018-08-05 13:13 | P.PN ---
Subjective Date of Service: 08/05/18 Chief Complaint: Obstructive uropathy Patient seen and examined at bedside with RN. Chart reviewed. Case discussed with urology. Patient this morning is feeling much better than before. Will attempt to get patient out of bed today ambulate with PT as well. Review of Systems 10-point ROS is otherwise unremarkable Physical Examination - Vital Signs Temperature: 97.4 F Blood Pressure: 192/81 Pulse: 74 Respirations: 20 Pulse Ox (%): 94 - Physical Exam General: Alert, In no apparent distress HEENT: Atraumatic, PERRLA, EOMI Neck: Supple, JVD not distended Respiratory: Clear to auscultation bilaterally, Normal air movement Cardiovascular: Regular rate/rhythm, Normal S1 S2 Gastrointestinal: Normal bowel sounds, No tenderness Musculoskeletal: No tenderness Integumentary: No rashes Neurological: Normal speech, Normal tone, Normal affect Lymphatics: No axilla or inguinal lymphadenopathy - Studies Medications List Reviewed: Yes Assessment And Plan - Current Problems (Diagnosis) (1) Sepsis Current Visit: Yes Status: Acute Plan: Severe Sepsis. Most likely secondary to UTI and bactermia along with nephrolithiasis -blood culture, urine culture + for ESBL Klebseilla -Switched to Meropenum. -hemodynamically stable at this time -Doing well. -Pending Placement Qualifiers: Sepsis type: sepsis due to unspecified organism Qualified Code(s): A41.9 - Sepsis, unspecified organism (2) UTI (urinary tract infection) Current Visit: Yes Status: Acute Plan: Acute cystitis most likely secondary to obstructive uropathy -IV meropenum. PICC line placed Qualifiers: Urinary tract infection type: acute cystitis Hematuria presence: without hematuria Qualified Code(s): N30.00 - Acute cystitis without hematuria (3) Left nephrolithiasis Onset Date: 07/31/18 Current Visit: Yes Status: Acute Plan: Left-sided nephrolithiasis -urology consulted appreciated recommendations at this time -status post stent placement. Removal planned on Monday -doing well overall pain adequately managed with current pain management (4) Hydronephrosis of left kidney Onset Date: 07/31/18 Current Visit: Yes Status: Acute Plan: Hydronephrosis secondary to left kidney nephrolithiasis -IV fluids at a Kelley catheter in place (5) Obstructive uropathy Onset Date: 07/31/18 Current Visit: Yes Status: Acute Plan: Obstructive uropathy acute kidney injury -IV fluids at this time -patient status post cystoscopy with stent placement with urology - Plan Pending clinical improvement at this time. Now with bactermia and UTI with ESBL. Started on Meropenum for 14days. PICC line placed. Pending placement and ESWL on monday for stent Removal Discharge Plan: Home Plan to discharge in: 48 Hours - Code Status/Comfort Care Code Status Assessed: Yes Critical Care: No
[2018-08-05 13:27] LABS: Blood Morphology Comment NOT SEEN (NOT SEEN); Platelet Estimate ADEQ
[2018-08-05] MEDS: ATORVASTATIN 40 MG TAB PO SCH (21:03)
--- NOTE | 2018-08-05 22:58 | PN ---
Date of Progress Note: 08/05/2018 Chief Complaint: Obstructive uropathy, urosepsis, bacteremia. History Of Present Illness: The patient is treated with IV antibiotics for urinary tract infection. The patient was found to have a possibility of ESWL and had ureteroscopy on Monday. The patient wa s found to have left kidney hydronephrosis and is treated with antibiotics for urinary tract infectio n. The patient during this admission was found to have acute on chronic kidney injury. Serum creati nine was 1.8 on arrival to the hospital and improved gradually to 1.4 and 1.0. Review of Systems: The patient denies cough, hemoptysis. Denies chest pain, palpitation. Physical Examination: Lungs: Clear to auscultation bilaterally. Heart: S1, S2. Abdomen: Soft, benign. Extremities: Minimal edema. Laboratory Data: Hemoglobin 11.2, WBC 14.7, sodium 135, potassium 4.5, chloride 103, CO2 27, BUN 16, creatinine 1.0, phosphorus 3.1. Impression And Plan: 1.Urosepsis with obstructive uropathy, hydronephrosis. Renal function is improving. The patient wi ll continue IV antibiotics for urosepsis. Continue IV fluids to prevent renal hypoperfusion. Monito r electrolytes and renal panel. 2.Hypoalbuminemia. Increase p.o. protein intake, re-evaluate prealbumin. 3.The patient had workup done which showed a protein 3+. Reevaluate urine protein creatinine ratio. 4.Hypertension. Blood pressure is in acceptable control. 5.Leukocytosis is improving with antibiotics. WBC was up to 25.2 and today lab work revealed a WBC of 11. 6.The patient has stable renal function. The patient has history of diabetes. Continue insulin to control the hyperglycemia. EB/MODL Voice ID: [id number] Report ID: [id number]
[2018-08-06] MEDS: ALBUTEROL 2.5 MG/3 ML NEB SOL NEB SCH ×4 (01:55→19:55)
[2018-08-06] MEDS: IPRATROPIUM BROM 0.5MG/2.5ML NEB SCH ×4 (01:55→19:55)
[2018-08-06] MEDS: INSULIN -REGULAR HUMAN 50 UNIT/0.5 ML ML SQ SCH ×4 (07:30→21:00)
--- NOTE | 2018-08-06 08:22 | RAD REPORT ---
EXAM DESCRIPTION: RAD - Abdomen 1 View (KUB) - 08/06/2018 7:49 am CLINICAL HISTORY: check stone/stent Pain COMPARISON: Abdomen 1 View (KUB) dated 07/31/2018 FINDINGS: The bowel gas pattern is non-obstructive. No evidence of free air or pneumatosis. Left selam ble-J stent is in place with proximal and distal aspects in appropriate/ expected location. Tiny calc ification is seen adjacent to the stent likely in the proximal left ureter or left renal pelvis. A sl ightly larger calcification is seen along the stent at the level of L4.
[2018-08-06] MEDS: ENOXAPARIN 40 MG/0.4 ML SQ SCH (09:00)
[2018-08-06] MEDS: ONDANSETRON 4 MG/2 ML VIAL IV PRN (09:50)
[2018-08-06] MEDS: POTASSIUM CL SA 10 MEQ TAB PO SCH ×2 (09:52→21:03)
[2018-08-06] MEDS: SITAGLIPTIN PHOS 100 MG TAB PO SCH (09:52)
[2018-08-06] MEDS: Meropenem 1,000 MG in NA CHLORIDE 0.9% 100 ML IV SCH ×2 (09:52→21:02)
[2018-08-06] MEDS: AMLODIPINE 5 MG TAB PO SCH (09:53)
[2018-08-06] MEDS: CARVEDILOL 6.25 MG TAB PO SCH ×2 (09:53→21:03)
[2018-08-06] MEDS: TAMSULOSIN 0.4 MG SR CAP PO SCH (09:53)
[2018-08-06] MEDS: FLUOXETINE 20 MG CAP PO SCH (09:53)
[2018-08-06] MEDS: PANTOPRAZOLE 40MG TABLET PO SCH (09:54)
[2018-08-06] MEDS: POLYMYXIN B SULF OPTH SCH ×2 (09:54→21:00)
[2018-08-06] MEDS: TRIMETHOPRIM OPTH SCH ×2 (09:54→21:00)
--- NOTE | 2018-08-06 12:52 | P.PN ---
Subjective Date of Service: 08/06/18 Chief Complaint: Obstructive uropathy Patient seen and examined at bedside with RN. Chart reviewed. Case discussed with urology. Patient this morning is feeling much better than before. She is scheduled for the surgical procedure with urology tomorrow. Currently also pending placement Review of Systems 10-point ROS is otherwise unremarkable Physical Examination - Vital Signs Temperature: 97 F Blood Pressure: 152/71 Pulse: 79 Respirations: 20 Pulse Ox (%): 97 - Physical Exam General: Alert, In no apparent distress HEENT: Atraumatic, PERRLA, EOMI Neck: Supple, JVD not distended Respiratory: Clear to auscultation bilaterally, Normal air movement Cardiovascular: Regular rate/rhythm, Normal S1 S2 Gastrointestinal: Normal bowel sounds, No tenderness Musculoskeletal: No tenderness Integumentary: No rashes Neurological: Normal speech, Normal tone, Normal affect Lymphatics: No axilla or inguinal lymphadenopathy - Studies Medications List Reviewed: Yes Assessment And Plan - Current Problems (Diagnosis) (1) Sepsis Current Visit: Yes Status: Acute Plan: Severe Sepsis. Most likely secondary to UTI and bactermia along with nephrolithiasis -blood culture, urine culture + for ESBL Klebseilla -On meropenum 02/08 -hemodynamically stable at this time -Doing well. -Pending Placement Qualifiers: Sepsis type: sepsis due to unspecified organism Qualified Code(s): A41.9 - Sepsis, unspecified organism (2) UTI (urinary tract infection) Current Visit: Yes Status: Acute Plan: Acute cystitis most likely secondary to obstructive uropathy -IV meropenum. PICC line placed Qualifiers: Urinary tract infection type: acute cystitis Hematuria presence: without hematuria Qualified Code(s): N30.00 - Acute cystitis without hematuria (3) Left nephrolithiasis Onset Date: 07/31/18 Current Visit: Yes Status: Acute Plan: Left-sided nephrolithiasis -urology consulted appreciated recommendations at this time -status post stent placement. Removal planned on Monday -doing well overall pain adequately managed with current pain management (4) Hydronephrosis of left kidney Onset Date: 07/31/18 Current Visit: Yes Status: Acute Plan: Hydronephrosis secondary to left kidney nephrolithiasis -IV fluids at a Kelley catheter in place (5) Obstructive uropathy Onset Date: 07/31/18 Current Visit: Yes Status: Acute Plan: Obstructive uropathy acute kidney injury -IV fluids at this time -patient status post cystoscopy with stent placement with urology - Plan Pending clinical improvement at this time. Now with bactermia and UTI with ESBL. Started on Meropenum for 6/14days. PICC line placed. Pending placement and ESWL on monday for stent Removal Discharge Plan: Home Plan to discharge in: 48 Hours - Code Status/Comfort Care Code Status Assessed: Yes Critical Care: No
--- NOTE | 2018-08-06 14:02 | PN ---
Subjective: The patient is feeling well. She is ready for surgery. Objective: Vital Signs: Temperature 97, pulse 79, respirations 20, BP 152/71, 97% saturating on room air. Laboratory Data: Her white count is 11, hemoglobin and hematocrit is 11.6 and 35, platelet count 308 . Her KUB shows a stone still at L4 by the stent on the left. Assessment: A 7 mm stone at the level of L4 on the left. Plan: We will attempt ESWL. If her body habitus does not allow that we will switch to ureteroscopy and laser lithotripsy of stone. She understands all the general information, alternatives, and risks and wishes to proceed. DOMONIQUE/MILAN Voice ID: [id number] Report ID: [id number]
--- NOTE | 2018-08-06 19:31 | PN ---
Subjective: The patient lying in bed. Denies any headache, nausea, vomiting, chest pain, abdominal pain, constipation, or diarrhea. Objective: Vital Signs: Temperature 97, pulse 79, respirations 16, blood pressure 152/71. Lungs: Basal crackles. Heart: S1, S2. Regular. Abdomen: Soft, nontender. Bowel sounds positive. Extremities: No edema. Assessment And Plan: Status post urinary tract infection and sepsis, bacteremia, urinary tract infec tion. Leukocytosis, improving. White blood cell count down 11,000. Currently being on meropenem. We will continue antibiotic total of 14 day course. NF/MODL Voice ID: [id number] Report ID: [id number]
[2018-08-06] MEDS: ATORVASTATIN 40 MG TAB PO SCH (21:03)
[2018-08-06] MEDS ORDERED: NA CHLORIDE 0.9% 250 ML ONE (21:20)
--- NOTE | 2018-08-07 03:02 | PN ---
Date of Progress Note: 08/06/2018 Chief Complaint: Obstructive uropathy, urosepsis, and bacteremia. Subjective: The patient has been treated with IV antibiotics for urosepsis. She denies new complain ts. Acute kidney injury was found when the patient came to the hospital. Creatinine was 1.8 and gra dually improved to 1.4 and 1.0. Review of Systems: Denies fever, chills. Denies chest pain. Physical Examination: Lungs: Clear to auscultation bilaterally. Heart: S1, S2. Abdomen: Soft, benign. Extremities: Minimal ankle edema. Impression And Plan: 1.Urosepsis, obstructive uropathy, and hydronephrosis. Renal function is improving. Continue IV an tibiotics. Continue p.o. hydration and IV fluids as needed. 2.Hypoalbuminemia. Increase p.o. protein intake. Workup showed 3+ proteinuria. Reevaluate protein -creatinine ratio. 3.Hypertension. Blood pressure control. 4.Leukocytosis is improving from 25,000-11,000. 5.The patient has history of diabetes mellitus. Continue insulin for diabetic control. EB/MODL Voice ID: [id number] Report ID: [id number]
[2018-08-07] MEDS: ALBUTEROL 2.5 MG/3 ML NEB SOL NEB SCH ×4 (03:08→19:30)
[2018-08-07] MEDS: IPRATROPIUM BROM 0.5MG/2.5ML NEB SCH ×4 (03:11→19:30)
[2018-08-07] MEDS: INSULIN -REGULAR HUMAN 50 UNIT/0.5 ML ML SQ SCH ×4 (07:30→21:13)
[2018-08-07] MEDS: CARVEDILOL 6.25 MG TAB PO SCH ×3 (09:00→21:14)
[2018-08-07] MEDS: AMLODIPINE 5 MG TAB PO SCH (09:00)
[2018-08-07] MEDS: POTASSIUM CL SA 10 MEQ TAB PO SCH ×2 (09:00→21:15)
[2018-08-07] MEDS: TAMSULOSIN 0.4 MG SR CAP PO SCH (09:00)
[2018-08-07] MEDS: PANTOPRAZOLE 40MG TABLET PO SCH (09:00)
[2018-08-07] MEDS: SITAGLIPTIN PHOS 100 MG TAB PO SCH (09:00)
[2018-08-07] MEDS: TRIMETHOPRIM OPTH SCH (09:00)
[2018-08-07] MEDS: ENOXAPARIN 40 MG/0.4 ML SQ SCH (09:00)
[2018-08-07] MEDS: FLUOXETINE 20 MG CAP PO SCH (09:00)
[2018-08-07] MEDS: POLYMYXIN B SULF OPTH SCH (09:00)
[2018-08-07] MEDS: Meropenem 1,000 MG in NA CHLORIDE 0.9% 100 ML IV SCH ×2 (10:25→21:12)
[2018-08-07] MEDS ORDERED: NA CHLORIDE 0.9% 1,000 ML ONE (10:52)
[2018-08-07] MEDS ORDERED: FENTANYL CITR 100 MCG/2 ML ONE (14:22)
[2018-08-07] MEDS ORDERED: PROPOFOL 200 MG/20 ML VIAL IV ONE (14:22)
[2018-08-07] MEDS ORDERED: MIDAZOLAM HCL 2 MG/2 ML INJ ONE (14:23)
[2018-08-07] MEDS ORDERED: LIDOCAINE 1% MPF 5 ML VIAL ONE ×2 (14:23)
[2018-08-07] MEDS ORDERED: ONDANSETRON 4 MG/2 ML VIAL ONE (14:47)
[2018-08-07] MEDS ORDERED: Phenylephrine HCl 10 MG/ML 1 ML VIAL ONE (14:48)
[2018-08-07] MEDS ORDERED: NS 0.9% VIAL 10 ML ONE (14:48)
[2018-08-07] MEDS ORDERED: PROMETHAZINE 25 MG/ML VIAL ONE (15:26)
--- NOTE | 2018-08-07 15:46 | RAD REPORT ---
EXAM DESCRIPTION: RAD - Urography Retrograde - 08/07/2018 3:10 pm CLINICAL HISTORY: Obstruction, kidney stone, stent placement COMPARISON: None. FINDINGS: There were 18 KUB images obtained during a fluoroscopic assisted placement of a left ureteral stent. No suspicious or unexpected finding. Fluoro time was 2 minutes 37 seconds. IMPRESSION: Left ureteral stent in good position.
[2018-08-07] MEDS: ONDANSETRON 4 MG/2 ML VIAL IV PRN (17:28)
--- NOTE | 2018-08-07 17:47 | P.PN ---
Subjective Date of Service: 08/07/18 Chief Complaint: Obstructive uropathy Subjective: Improving Physical Examination - Vital Signs Temperature: 97.6 F Blood Pressure: 133/69 Pulse: 75 Respirations: 17 Pulse Ox (%): 95 - Physical Exam General: Alert, In no apparent distress, Oriented x3, Cooperative HEENT: Atraumatic Neck: Supple Respiratory: Clear to auscultation bilaterally, Normal air movement Cardiovascular: Normal pulses, Regular rate/rhythm Gastrointestinal: Normal bowel sounds, Soft and benign, Non-distended Musculoskeletal: No erythema, No tenderness, No warmth Integumentary: No erythema, No warmth, No cyanosis Neurological: Normal speech, Normal strength at 5/5 x4 extr, Normal tone - Studies Medications List Reviewed: Yes Assessment & Plan Discharge Plan: Home Plan to discharge in: 48 Hours Physician Review Additional Text: Impression: Severe sepsis secondary to UTI and bacteremia with left nephrolithiasis, urine culture positive for Klebsiella-ESBL, on IV meropenem day 03/10 Obstructive uropathy status post cystoscopy and stent placement Plan: Severe sepsis secondary to UTI and bacteremia with left nephrolithiasis, urine culture positive for Klebsiella-ESBL, on IV meropenem day 03/10: Will continue with IV antibiotic therapy. Patient being evaluated for skilled placement. Awaiting approval. Patient to have removal of stent and lithotripsy done today. Await further recommendations from urology. Obstructive uropathy status post cystoscopy and stent placement: Continue as above. Will monitor closely. Patient to have urological procedure for lithotripsy and stent removal. Anticipate transfer to skilled facility likely in the next 1-2 days. Time Spent Managing Pts Care (In Minutes): 55
[2018-08-07] MEDS: ATORVASTATIN 40 MG TAB PO SCH (21:15)
[2018-08-07] MEDS: [UNRECOGNIZED DRUG - OTHER] OPTH SCH (21:27)
[2018-08-07] MEDS: ACETAMINOPHEN 500 MG TAB PO PRN (21:56)
[2018-08-08] MEDS: ALBUTEROL 2.5 MG/3 ML NEB SOL NEB SCH ×4 (01:10→21:50)
[2018-08-08] MEDS: IPRATROPIUM BROM 0.5MG/2.5ML NEB SCH ×4 (01:10→21:50)
[2018-08-08] MEDS ORDERED: WATER FOR INJ,STERILE 10 ML ONE (01:20)
[2018-08-08] MEDS ORDERED: ALTEPLASE 2 MG/VIAL IV SCH (02:00)
[2018-08-08] MEDS: INSULIN -REGULAR HUMAN 50 UNIT/0.5 ML ML SQ SCH ×4 (07:30→21:00)
[2018-08-08] MEDS: [UNRECOGNIZED DRUG - OTHER] OPTH SCH ×2 (09:00→21:20)
[2018-08-08] MEDS: Meropenem 1,000 MG in NA CHLORIDE 0.9% 100 ML IV SCH ×2 (09:18→21:19)
[2018-08-08] MEDS: SITAGLIPTIN PHOS 100 MG TAB PO SCH (09:19)
[2018-08-08] MEDS: TAMSULOSIN 0.4 MG SR CAP PO SCH (09:19)
[2018-08-08] MEDS: CARVEDILOL 6.25 MG TAB PO SCH ×2 (09:19→21:18)
[2018-08-08] MEDS: POTASSIUM CL SA 10 MEQ TAB PO SCH ×2 (09:19→21:18)
[2018-08-08] MEDS: FLUOXETINE 20 MG CAP PO SCH (09:20)
[2018-08-08] MEDS: ENOXAPARIN 40 MG/0.4 ML SQ SCH (09:20)
[2018-08-08] MEDS: PANTOPRAZOLE 40MG TABLET PO SCH (09:20)
[2018-08-08] MEDS: AMLODIPINE 5 MG TAB PO SCH (09:22)
[2018-08-08] MEDS: ONDANSETRON 4 MG/2 ML VIAL IV PRN (09:27)
--- NOTE | 2018-08-08 14:46 | PN ---
Date of Progress Note: 08/08/2018 History: The patient is status post lithotripsy yesterday. The patient is feeling better. Physical Examination: Vital Signs: Blood pressure 136/63, pulse of 70, afebrile. The patient had good urine output of 290 0. Chest: Clear to auscultation. Heart: S1-S2. Regular. Abdomen: Obese. No organomegaly. Extremities: Trace edema. Laboratory Data: WBC 11, H and H 11.6/35, platelets 309. Sodium 136, potassium 4.7, bicarb 29, BUN 11, creatinine 0.9, calcium 8.4, phosphorus 3.3, albumin 1.6, corrected calcium is 10.4. Medications: Current medications the patient on its include: 1.Meropenem. 2.Flomax. 3.Lovenox. 4.Amlodipine 5 mg. 5.Carvedilol 6.25 b.i.d. 6.Lyrica. 7.Breathing treatment. 8.Prozac. 9.Tylenol. 10.Pantoprazole. 11.Melatonin. Assessment And Plan: 1.Acute kidney injury secondary to obstructive uropathy/toxic acute tubular necrosis secondary to ur inary tract infection, recovered, resolved. 2.Hypokalemia, on supplement, resolved. We will follow up the lab. 3.Hypercalcemia, marginal. I am going to go ahead and send for vitamin D level, and we will send fo r PTH. We will follow up. 4.Urinary tract infection, complicated, secondary to Klebsiella pneumonia. Continue current antibiotic. 5.Altered mental status, stable. Follow up with the primary. JUANY Voice ID: [id number] Report ID: [id number]
--- NOTE | 2018-08-08 14:53 | P.PN ---
Subjective Date of Service: 08/08/18 Primary Care Provider: Unknown Chief Complaint: Obstructive uropathy Subjective: Doing well (Patient is doing well. Patient had lithotripsy done with stent removal yesterday.) Physical Examination - Vital Signs Temperature: 97.8 F Blood Pressure: 143/73 Pulse: 75 Respirations: 18 Pulse Ox (%): 96 - Physical Exam General: Alert, In no apparent distress, Oriented x3, Cooperative HEENT: Atraumatic Neck: Supple Respiratory: Clear to auscultation bilaterally, Normal air movement Cardiovascular: Normal pulses, Regular rate/rhythm Gastrointestinal: Normal bowel sounds, Soft and benign, Non-distended, No tenderness, No masses, No rebound, No guarding Musculoskeletal: No erythema, No tenderness, No warmth Integumentary: No tenderness/swelling, No erythema, No warmth, No cyanosis Neurological: Normal speech, Normal strength at 5/5 x4 extr, Normal tone, Normal affect - Studies Medications List Reviewed: Yes Assessment & Plan Discharge Plan: Other (Inpatient rehab facility) Plan to discharge in: 24 Hours Physician Review Additional Text: Impression: Severe sepsis secondary to UTI and bacteremia with left nephrolithiasis, urine culture positive for Klebsiella-ESBL, on IV meropenem day 03/10 Obstructive uropathy status post cystoscopy and stent placement Obesity, BMI 47 Obstructive sleep apnea Hypertension Diabetes mellitus type 2 [id number] Hyperlipidemia Depression Plan: Severe sepsis secondary to UTI and bacteremia with left nephrolithiasis, urine culture positive for Klebsiella-ESBL, on IV meropenem day 04/10: Will continue with IV antibiotic therapy-meropenem. Patient being evaluated for inpatient rehab facility. Patient had removal of stent and lithotripsy done yesterday. Await acceptance to inpatient rehab facility once approved then the patient can be discharged. Anticipate within the next 24-48 hr. Continue with physical therapy. Increase ambulation. Obstructive uropathy status post cystoscopy and stent placement: Continue as above. Will monitor closely. Obesity, BMI 47: Continue with lifestyle modification education. Obstructive sleep apnea: Patient will need to continue with her CPAP at night Hypertension: Will continue with her medication of Norvasc 5 mg daily and carvedilol 6.25 mg daily. Continue monitor and adjust appropriately. Diabetes mellitus type 2 [id number]: Patient currently on Januvia 100 mg daily. Will continue sliding scale. Hyperlipidemia: Continue with Lipitor 40 mg daily. Depression: Continue with Prozac 40 mg daily. Time Spent Managing Pts Care (In Minutes): 55
--- NOTE | 2018-08-08 15:05 | RAD REPORT ---
EXAM DESCRIPTION: RAD - Abdomen 1 View (KUB) - 08/08/2018 2:57 pm CLINICAL HISTORY: check stone s/p treatment Pain COMPARISON: Abdomen 1 View (KUB) dated 08/06/2018; Abdomen 1 View (KUB) dated 07/31/2018 FINDINGS: The bowel gas pattern is non-obstructive. No evidence of free air or pneumatosis. Left-brian ed double-J stent remains in place with proximal and distal aspects in expected position. Previously noted calcification along the proximal aspect of the stent is not clearly identified on today's study .
--- NOTE | 2018-08-08 18:37 | PN ---
Subjective: The patient is feeling well. She is doing a breathing treatment. Objective: Afebrile. Vital signs stable. Assessment: Status post ureteroscopy, laser lithotripsy and stone extraction, new stent placement. Plan: Plan is to do KUB to document the stone has gone and then plan to remove her stent and Kelley c atheter next few days. DOMONIQUE/MILAN Voice ID: [id number] Report ID: [id number]
[2018-08-08] MEDS: ATORVASTATIN 40 MG TAB PO SCH (21:18)
[2018-08-09] MEDS: IPRATROPIUM BROM 0.5MG/2.5ML NEB SCH ×3 (02:55→14:05)
[2018-08-09] MEDS: ALBUTEROL 2.5 MG/3 ML NEB SOL NEB SCH ×3 (02:55→14:05)
[2018-08-09 05:29] LABS: Phosphorus 3.3 mg/dL (2.5-4.9); Potassium 4.4 mmol/L (3.5-5.1)
[2018-08-09] MEDS ORDERED: MAGNESIUM SULFATE 1 gm IVPB 1 GM/100 ML BAG IV ONE (08:00)
[2018-08-09] MEDS: INSULIN -REGULAR HUMAN 50 UNIT/0.5 ML ML SQ SCH ×4 (08:39→21:00)
[2018-08-09] MEDS: POTASSIUM CL SA 10 MEQ TAB PO SCH ×2 (08:40→21:19)
[2018-08-09] MEDS: AMLODIPINE 5 MG TAB PO SCH (08:40)
[2018-08-09] MEDS: PANTOPRAZOLE 40MG TABLET PO SCH (08:40)
[2018-08-09] MEDS: ENOXAPARIN 40 MG/0.4 ML SQ SCH (08:40)
[2018-08-09] MEDS: SITAGLIPTIN PHOS 100 MG TAB PO SCH (08:41)
[2018-08-09] MEDS: CARVEDILOL 6.25 MG TAB PO SCH ×3 (08:41→21:19)
[2018-08-09] MEDS: [UNRECOGNIZED DRUG - OTHER] OPTH SCH ×2 (08:42→21:00)
[2018-08-09] MEDS: FLUOXETINE 20 MG CAP PO SCH (08:42)
[2018-08-09] MEDS: TAMSULOSIN 0.4 MG SR CAP PO SCH (08:42)
[2018-08-09] MEDS: Meropenem 1,000 MG in NA CHLORIDE 0.9% 100 ML IV SCH ×2 (08:43→21:19)
--- NOTE | 2018-08-09 10:24 | P.PN ---
Subjective Date of Service: 08/09/18 Primary Care Provider: Unknown Chief Complaint: Obstructive uropathy Subjective: Improving (Patient continues do well.) Physical Examination - Vital Signs Temperature: 97.6 F Blood Pressure: 140/66 Pulse: 89 Respirations: 19 Pulse Ox (%): 94 - Physical Exam General: Alert, In no apparent distress, Oriented x3, Cooperative HEENT: Atraumatic Neck: Supple Respiratory: Clear to auscultation bilaterally, Normal air movement Cardiovascular: Normal pulses, Regular rate/rhythm Gastrointestinal: Normal bowel sounds, Soft and benign, Non-distended Musculoskeletal: No erythema, No tenderness, No warmth Integumentary: No tenderness/swelling, No erythema, No warmth, No cyanosis Neurological: Normal speech, Normal strength at 5/5 x4 extr, Normal tone - Studies Medications List Reviewed: Yes Assessment & Plan Discharge Plan: Other (Inpatient rehab facility) Plan to discharge in: 24 Hours Physician Review Additional Text: Impression: Severe sepsis secondary to UTI and bacteremia with left nephrolithiasis, urine culture positive for Klebsiella-ESBL, on IV meropenem day 05/11 Obstructive uropathy status post cystoscopy and stent placement Obesity, BMI 47 Obstructive sleep apnea Hypertension Diabetes mellitus type 2 [id number] Hyperlipidemia Depression Plan: Severe sepsis secondary to UTI and bacteremia with left nephrolithiasis, urine culture positive for Klebsiella-ESBL, on IV meropenem day 05/11: Will continue with IV antibiotic therapy-meropenem. PICC line in place. Patient being evaluated for inpatient rehab facility transfer. Patient doing well this time. Continue with physical therapy and ambulation. Patient with Kelley catheter at this time. Will discuss with urology on when this can be removed likely in the next 2-3 days. Case discussed at length with social worker assistant. Awaiting approval for inpatient rehab facility transfer. Obstructive uropathy status post cystoscopy and stent placement: Continue as above. Will monitor closely. Obesity, BMI 47: Continue with lifestyle modification education. Obstructive sleep apnea: Patient will need to continue with her CPAP at night. Overall stable at this time. Hypertension: Will continue with her medication of Norvasc 5 mg daily and carvedilol 6.25 mg daily. Stable at this time. Continue monitor and adjust appropriately. Diabetes mellitus type 2 [id number]-[id number]: Patient currently on Januvia 100 mg daily. Will continue sliding scale. Hyperlipidemia: Continue with Lipitor 40 mg daily. Depression: Continue with Prozac 40 mg daily. Time Spent Managing Pts Care (In Minutes): 55
[2018-08-09] MEDS ORDERED: FLUCONAZOLE 100 MG TAB PO ONE (12:04)
[2018-08-09] MEDS: ACETAMINOPHEN 500 MG TAB PO PRN (12:31)
--- NOTE | 2018-08-09 13:08 | PN ---
Subjective: Patient is feeling well. Objective: Vital Signs: Temperature 97.6, pulse 89, respirations 19, blood pressure 140/66, 94% sat uration on room air. Assessment: Status post ureteroscopy, stone extraction, stent placement, Kelley placement. KUB shows no more stones. Stent in good position. Plan: Plan is to go ahead and remove her Kelley catheter, remove her stent today. I went ahead and r emoved it with nurse Myrtle present. Kelley catheter was removed with no problem and stent was remov ed via string. However, notes some infection in the vagina area. I went ahead and wrote her for 1 d ose of Diflucan 200 mg x1. PB/MODL Voice ID: [id number] Report ID: [id number]
--- NOTE | 2018-08-09 15:32 | PN ---
Date of Progress Note: 08/09/2018 Subjective: The patient was admitted with obstructive uropathy, pyelonephritis, complicated UTI with nephrolithiasis, status post lithotripsy stent placement. Physical Examination: Vital Signs: Blood pressure of 140/66, pulse of 89. Chest: Clear to auscultation. Heart: S1 and S2 regular. Abdomen: Soft, nontender. Extremities: Trace edema. Laboratory Data: WBC 11, H and H 11.6/35, platelets 308. Sodium 137, potassium 4.4, bicarb 30, BUN 11, creatinine 0.8. GFR within normal limit. Calcium 8.5, phosphorus 3.3, albumin 2, corrected calc ium is 10. Current Medications: The patient on its include: 1.Breathing treatment. 2.Meropenem. 3.Lovenox. 4.Norvasc 5 daily. 5.Carvedilol. 6.Atorvastatin. Assessment And Plan: 1.Acute kidney injury secondary to toxic acute tubular necrosis, poor perfusion acute tubular necros is, recovered, resolved. 2.Complicated urinary tract infection secondary to Klebsiella pneumoniae with bacteremia and nephrol ithiasis. Continue current antibiotic. Follow up with ID. 3.Nephrolithiasis, status post stent and lithotripsy. Continue on Flomax. We will follow up with Hal ortiz. 4.Deconditioning. Continue PT/OT. 5.Hypokalemia has been resolved. JUANY Voice ID: [id number] Report ID: [id number]
[2018-08-09] MEDS ORDERED: IPRATROPIUM BROM 0.5MG/2.5ML NEB PRN (15:49)
[2018-08-09] MEDS ORDERED: ALBUTEROL 2.5 MG/3 ML NEB SOL NEB PRN (15:49)
[2018-08-09] MEDS: MELATONIN 3 MG TABLET PO PRN (21:19)
[2018-08-09] MEDS: ATORVASTATIN 40 MG TAB PO SCH (21:19)
[2018-08-09] MEDS: ZINC OXIDE 20% OINTMENT 60gm TOP SCH (21:19)
--- NOTE | 2018-08-09 21:35 | PN ---
Subjective: The patient is lying in bed. Denies any headache, nausea, vomiting, chest pain, abdomin al pain, constipation, or diarrhea. Objective: Vital Signs: Temperature 97.9, pulse 78, respirations 16, blood pressure 151/77. Lungs: Basal crackles. Heart: S1, S2. Regular. Abdomen: Soft, nontender. Bowel sounds positive. Extremities: Trace edema. Sacral wound noted. Laboratory Data: Shows WBC 12112, hemoglobin 11.6, platelets are 308. Chemistry shows sodium 137, p otassium 4.4, chloride 103, bicarb 30, BUN 11, creatinine 0.8, glucose 160. Medications: Include meropenem. Blood cultures and urine cultures are Klebsiella pneumonia from . Assessment And Plan: Bacteremia and urinary tract infection from Klebsiella pneumonia. Continue mildred openem, total course of 2 weeks. Sacral wounds, apply barrier cream with zinc oxide. Apply nystatin to the rash in the groin area. Continue supportive care and wound care. We will follow the patient as needed. DENILSON/MILAN Voice ID: [id number] Report ID: [id number]
[2018-08-10 05:22] LABS: Albumin 2.1 g/dL (3.4-5.0); Magnesium 1.9 mg/dL (1.8-2.4); Phosphorus 3.3 mg/dL (2.5-4.9); Potassium 4.3 mmol/L (3.5-5.1)
[2018-08-10] MEDS: INSULIN -REGULAR HUMAN 50 UNIT/0.5 ML ML SQ SCH ×2 (07:30→11:30)
[2018-08-10] MEDS: ZINC OXIDE 20% OINTMENT 60gm TOP SCH (09:00)
[2018-08-10] MEDS: [UNRECOGNIZED DRUG - OTHER] OPTH SCH (09:00)
[2018-08-10] MEDS: POTASSIUM CL SA 10 MEQ TAB PO SCH (09:05)
[2018-08-10] MEDS: TAMSULOSIN 0.4 MG SR CAP PO SCH (09:05)
[2018-08-10] MEDS: AMLODIPINE 5 MG TAB PO SCH (09:05)
[2018-08-10] MEDS: FLUOXETINE 20 MG CAP PO SCH (09:05)
[2018-08-10] MEDS: CARVEDILOL 6.25 MG TAB PO SCH (09:05)
[2018-08-10] MEDS: ONDANSETRON 4 MG/2 ML VIAL IV PRN (09:06)
[2018-08-10] MEDS: PANTOPRAZOLE 40MG TABLET PO SCH (09:06)
[2018-08-10] MEDS: Meropenem 1,000 MG in NA CHLORIDE 0.9% 100 ML IV SCH (09:09)
[2018-08-10] MEDS: ENOXAPARIN 40 MG/0.4 ML SQ SCH (09:09)
[2018-08-10] MEDS: SITAGLIPTIN PHOS 100 MG TAB PO SCH (09:09)
--- NOTE | 2018-08-10 10:21 | P.DS ---
Admission Date: 07/30/18 Discharge Date: 08/10/18 Primary Care Provider: Unknown Disposition: TRANSFER TO INPATIENT REHAB Discharge Condition: GOOD Reason for Admission: Obstructive uropathy Consultations: Urology-Dr. Mak Nephrology-Dr. Shah/Dr. Johnston Procedures: CT scan: COMPARISON: None. TECHNIQUE: Computed axial tomography of the abdomen and pelvis was obtained. 100 cc Isovue-300 is administered intravenously. Oral contrast was given. Preliminary report generated by virtual radiologic and review prior to dictation All CT scans are performed using dose optimization technique as appropriate and may include automated exposure control or mA/KV adjustment according to patient size. FINDINGS: Fatty liver Spleen, pancreas, and adrenals appear unremarkable. Tiny bilateral renal calculi. Delayed frustrated contrast in the left kidney with mild to moderate hydronephrosis. 5 millimeter calculus mid left ureter is calcified unit 650. Punctate air bubble within the bladder The appendix is normal caliber. Diverticula stem from the colon without evidence of diverticulitis Periumbilical hernias contain fat. Postsurgical changes gastric bypass. Spondylosis involves lumbar spine resulting in spinal stenosis IMPRESSION: 5 millimeter calculus mid left ureter resulting in mild to moderate left hydronephrosis Punctate air bubble within the bladder may be secondary to instrumentation or infection ABUS: COMPARISON: None. FINDINGS: The gallbladder wall is not thickened. A gallstone is not seen. Small amount of sludge The biliary tree is normal caliber. IMPRESSION: Small amount of sludge within the gallbladder. Otherwise, unremarkable Gallbladder ultrasound. Procedures: 07/31/2018: Cystoscopy, Ureteroscopy, Placement of double J stent 08/07/2018: Cystoscopy, Ureteroscopy, Stone extraction, Placement of stent 08/09/2018: Stent removal and Kelley catheter removal. Impression: Severe sepsis secondary to UTI and bacteremia with left nephrolithiasis, urine/ blood culture positive for Klebsiella-ESBL, on IV meropenem day 10 Acute kidney injury with Acute tubular necrosis, resolved Obstructive uropathy status post cystoscopy/stent placement; repeat cystoscopy/ stone extraction/stent placement; and removal of stent/Kelley catheter Obesity, BMI 47 Obstructive sleep apnea Hypertension Diabetes mellitus type 2 [id number]-joterxh-yzgsgtmme DM Neuropathy Hyperlipidemia Depression GERD Brief History of Present Illness: 58-year-old female presented emergency room and found sepsis related to UTI, left nephrolithiasis and acute renal injury. Patient was admitted for treatment. Hospital Course: Patient found to have severe sepsis secondary to UTI and bacteremia related to left nephrolithiasis. Urine and blood cultures were positive for Klebsiella- ESBL. Patient placed on IV meropenem. During the course of her stay patient also presented with acute renal injury secondary to acute tubular necrosis related to UTI. Patient was seen and evaluated by nephrology and urology. Nephrology performed stent placement on 07/31/2018. As her condition improved on 08/07/2018 stone was removed to the left side and stent placed. Stent was eventually removed along with Kelley catheter on 08/09/2018. Since that time patient has also been seen by infectious disease. Recommendation is to continue with IV meropenem 1 g IV twice daily for total of 2 weeks. She is on day 10. Patient has PICC line placed. Patient has been accepted to inpatient rehab to continue therapy and antibiotics. At discharge she will continue with IV meropenem to be completed in the next 4 days. Recommendation is to recheck blood cultures and urine culture after that time. If unremarkable antibiotics can be discontinued along with PICC line. Patient will continue with physical therapy. Renal function back to baseline. As mentioned above patient came in with acute renal injury. Patient seen and evaluated by nephrology. Patient will continue with her current medication. Recommendation to recheck lab-BMP in 1 week to monitor progress. Patient may follow up with nephrology as an outpatient to further monitor. Recommend no further use of nonsteroidal anti-inflammatories. Patient has hypertension. Medications were adjusted during her stay. At discharge, Patient will continue with Norvasc 5 mg daily and carvedilol 12.5 mg twice daily. Recommendation is to maintain blood pressures less 150/80. Further adjustment can be done by her PCP. Patient has diabetes mellitus type 2, [id number]. Patient will continue with her medication of Januvia 100 mg 1 pill daily and glimepiride 1 mg twice daily. Recommendation is to maintain blood sugars less than 140 fasting and less than 200 after meals. Further adjustment can be done by her PCP. Patient has hyperlipidemia. She will continue with Lipitor 40 mg daily. Patient has depression. She will continue with Prozac 40 mg daily and Xanax 0.25 mg daily as needed for anxiety. Patient with obesity, BMI 47. Lifestyle modification education will be provided. Patient has diabetic neuropathy. Patient will continue with Neurontin 600 mg 1 pill 3 times a day and Lyrica 150 mg 1 pill twice daily. Patient also uses Tylenol #3 one pill 3 times a day as needed for pain. Patient has GERD. Patient will continue with Protonix 20 mg daily Patient with obstructive sleep apnea. Patient will continue with CPAP at night. Vital Signs/Physical Exam: Temp Pulse Resp BP Pulse Ox 97.6 F 73 17 151/83 H 97 08/10/18 08:00 08/10/18 08:00 08/10/18 08:00 08/10/18 08:00 08/10/18 08:00 General: Alert, In no apparent distress, Oriented x3, Cooperative HEENT: Atraumatic Neck: Supple Respiratory: Clear to auscultation bilaterally, Normal air movement Cardiovascular: Normal pulses, Regular rate/rhythm Gastrointestinal: Normal bowel sounds, Soft and benign, Non-distended, No tenderness, No masses, No rebound, No guarding Musculoskeletal: No contractures, No erythema, No tenderness, No warmth Integumentary: No tenderness/swelling, No erythema, No warmth, No cyanosis Neurological: Normal speech, Normal strength at 5/5 x4 extr, Normal tone, Normal affect Laboratory Data at Discharge: WBC 11.0 K/uL (4.3-10.9) H D 08/05/18 11:23 Hgb 11.6 g/dL (12.0-15.0) L 08/05/18 11:23 Hct 35.0 % (36.0-45.0) L 08/05/18 11:23 Plt Count 308 K/uL (152-406) 08/05/18 11:23 Sodium 138 mmol/L (136-145) 08/10/18 04:34 Potassium 4.3 mmol/L (3.5-5.1) 08/10/18 04:34 BUN 11 mg/dL (7-18) 08/10/18 04:34 Creatinine 0.80 mg/dL (0.55-1.3) 08/10/18 04:34 Glucose 162 mg/dL (74-106) H 08/10/18 04:34 Phosphorus 3.3 mg/dL (2.5-4.9) 08/10/18 04:34 Magnesium 1.9 mg/dL (1.8-2.4) 08/10/18 04:34 Total Bilirubin 0.3 mg/dL (0.2-1.0) 08/04/18 05:15 AST 39 U/L (15-37) H 08/04/18 05:15 ALT 23 U/L (12-78) 08/04/18 05:15 Alkaline Phosphatase 394 U/L (45-117) H 08/04/18 05:15 Lipase 39 U/L (73-393) L 07/29/18 19:39 Home Medications: ALPRAZolam [Xanax*] 0.25 mg PO DAILY PRN 07/30/18 Atorvastatin Calcium [Lipitor*] 40 mg PO BEDTIME 07/30/18 Codeine/APAP [Tylenol #3*] 2 tab PO Q6H PRN 07/30/18 Ergocalciferol (Vitamin D2) [Vitamin D2] 1 tab PO BID 07/30/18 Fluoxetine HCl [Prozac*] 40 mg PO DAILY 07/30/18 Gabapentin [Neurontin*] 600 mg PO Q8H 07/30/18 Glimepiride [Amaryl*] 1 mg PO BID 07/30/18 Pantoprazole [Protonix Tab*] 20 mg PO DAILY 07/30/18 Polymyxin B Sulf/Trimethoprim [Polymyxin B-Tmp Eye Drops] 1 drop OPTH BID Pregabalin [Lyrica*] 150 mg PO TID 07/30/18 Promethazine HCl 25 mg PO Q6H PRN 07/30/18 Sitagliptin Phosphate [Januvia*] 100 mg PO DAILY 07/30/18 Topiramate [Topamax*] 25 mg PO BID 07/30/18 Amlodipine [Norvasc*] 5 mg PO DAILY #30 tab 08/10/18 Carvedilol [Coreg*] 12.5 mg PO BID #60 tab 08/10/18 New Medications: Amlodipine [Norvasc*] 5 mg PO DAILY #30 tab Carvedilol [Coreg*] 12.5 mg PO BID #60 tab Patient Discharge Instructions: 1. Patient will go to inpatient rehab to continue her care and treatment. 2. Patient found to have severe sepsis secondary to UTI and bacteremia related to left nephrolithiasis. Urine and blood cultures were positive for Klebsiella-ESBL. Patient placed on IV meropenem. During the course of her stay patient also presented with acute renal injury secondary to acute tubular necrosis related to UTI. Patient was seen and evaluated by nephrology and urology. Nephrology performed stent placement on 07/31/2018. As her condition improved on 08/07/2018 stone was removed to the left side and stent placed. Stent was eventually removed along with Kelley catheter on 08/09/2018. Since that time patient has also been seen by infectious disease. Recommendation is to continue with IV meropenem 1 g IV twice daily for total of 2 weeks. She is on day 10. Patient has PICC line placed. Patient has been accepted to inpatient rehab to continue therapy and antibiotics. At discharge she will continue with IV meropenem to be completed in the next 4 days. Recommendation is to recheck blood cultures and urine culture after that time. If unremarkable antibiotics can be discontinued along with PICC line. Patient will continue with physical therapy. 3. Renal function back to baseline. As mentioned above patient came in with acute renal injury. Patient seen and evaluated by nephrology. Patient will continue with her current medication. Recommendation to recheck lab-BMP in 1 week to monitor progress. Patient may follow up with nephrology as an outpatient to further monitor. Recommend no further use of nonsteroidal anti-inflammatories. 4. Patient has hypertension. Medications were adjusted during her stay. At discharge, Patient will continue with Norvasc 5 mg daily and carvedilol 12.5 mg twice daily. Recommendation is to maintain blood pressures less 150/80. Further adjustment can be done by her PCP. 5. Patient has diabetes mellitus type 2, [id number]. Patient will continue with her medication of Januvia 100 mg 1 pill daily and glimepiride 1 mg twice daily. Recommendation is to maintain blood sugars less than 140 fasting and less than 200 after meals. Further adjustment can be done by her PCP. 6. Patient has hyperlipidemia. She will continue with Lipitor 40 mg daily. 7. Patient has depression. She will continue with Prozac 40 mg daily and Xanax 0.25 mg daily as needed for anxiety. 8. Patient with obesity, BMI 47. Lifestyle modification education will be provided. 9. Patient has diabetic neuropathy. Patient will continue with Neurontin 600 mg 1 pill 3 times a day and Lyrica 150 mg 1 pill twice daily. Patient also uses Tylenol #3 one pill 3 times a day as needed for pain. 10. Patient has GERD. Patient will continue with Protonix 20 mg daily. 11. Patient with obstructive sleep apnea. Patient will continue with CPAP at night. Diet: ADA Activity: Fall precautions Time spent managing pt's care (in minutes): 55
--- NOTE | 2018-08-10 10:53 | P.PN ---
Subjective Date of Service: 08/10/18 Primary Care Provider: Unknown Chief Complaint: Obstructive uropathy Subjective: No new changes Pt with urosespis and baceremia 2/2 obstructive uropathy Cr normalzed Afebrile Cleared for discharge from nephrology point of view Physical Examination - Vital Signs Temperature: 97.6 F Blood Pressure: 151/83 Pulse: 73 Respirations: 17 Pulse Ox (%): 97 - Physical Exam General: Oriented x3 HEENT: Atraumatic Neck: Supple, Without JVD or thyroid abnormality Respiratory: Clear to auscultation bilaterally, Normal air movement Cardiovascular: No edema, Regular rate/rhythm, Normal S1 S2, No gallops, No rubs , No murmurs Gastrointestinal: Normal bowel sounds, Soft and benign - Studies Medications List Reviewed: Yes Assessment And Plan - Current Problems (Diagnosis) (1) Hydronephrosis of left kidney Onset Date: 07/31/18 Current Visit: Yes Status: Acute (2) Obstructive uropathy Onset Date: 07/31/18 Current Visit: Yes Status: Acute (3) Sepsis Current Visit: Yes Status: Acute Qualifiers: Sepsis type: sepsis due to unspecified organism Qualified Code(s): A41.9 - Sepsis, unspecified organism (4) UTI (urinary tract infection) Current Visit: Yes Status: Acute Qualifiers: Urinary tract infection type: acute cystitis Hematuria presence: without hematuria Qualified Code(s): N30.00 - Acute cystitis without hematuria - Plan Assessment And Plan: Acute kidney injury secondary to obstructive uropathy Resolved Cr baseline ~1.0 Cr improving S/P uretroscopy HTN Controlled now Urosepsis Bcx and Ucx: klebsiella ESBL on merrem DM as per primary Physician Review Additional Text: Impression: Severe sepsis secondary to UTI and bacteremia with left nephrolithiasis, urine culture positive for Klebsiella-ESBL, on IV meropenem day 05/11 Obstructive uropathy status post cystoscopy and stent placement Obesity, BMI 47 Obstructive sleep apnea Hypertension Diabetes mellitus type 2 [id number] Hyperlipidemia Depression Plan: Severe sepsis secondary to UTI and bacteremia with left nephrolithiasis, urine culture positive for Klebsiella-ESBL, on IV meropenem day 05/11: Will continue with IV antibiotic therapy-meropenem. PICC line in place. Patient being evaluated for inpatient rehab facility transfer. Patient doing well this time. Continue with physical therapy and ambulation. Patient with Kelley catheter at this time. Will discuss with urology on when this can be removed likely in the next 2-3 days. Case discussed at length with social worker school. Awaiting approval for inpatient rehab facility transfer. Obstructive uropathy status post cystoscopy and stent placement: Continue as above. Will monitor closely. Obesity, BMI 47: Continue with lifestyle modification education. Obstructive sleep apnea: Patient will need to continue with her CPAP at night. Overall stable at this time. Hypertension: Will continue with her medication of Norvasc 5 mg daily and carvedilol 6.25 mg daily. Stable at this time. Continue monitor and adjust appropriately. Diabetes mellitus type 2 [id number]: Patient currently on Januvia 100 mg daily. Will continue sliding scale. Hyperlipidemia: Continue with Lipitor 40 mg daily. Depression: Continue with Prozac 40 mg daily.
--- NOTE | 2018-08-10 18:03 | PN ---
History: The patient is lying in bed. Denies any headache, nausea, vomiting, chest pain, abdominal pain, constipation, or diarrhea. Feels much better today. No new acute events. Objective: Vital Signs: Temperature 98, pulse 78, respirations 16. Lungs: Basal crackles. Heart: S1, S2. Regular. Abdomen: Soft, nontender. Bowel sounds present. Extremities: Trace edema. Laboratory Data: Reviewed. Assessment And Plan: Bacteremia and urinary tract infection secondary to Klebsiella pneumoniae. Con tinue antibiotic and supportive care. We will follow the patient as needed, the patient being discha rged. NF/MODL Voice ID: [id number] Report ID: [id number]
[2018-08-13 14:59] LABS: Vitamin D 1,25-Dihydroxy Total 11 pg/mL (18-72); Vitamin D,1,25-OH2, D2 11 pg/mL
== END 2018-08-10 13:15 | DRG 853 ==
LOC: ER 19:21 → ERHOLD 07-30 01:51 → 2ND 07-30 04:13
PROVIDERS: ADMIT Hospitalist; ATTEND Family Medicine
PROC: BT1FYZZ Fluoroscopy of Left Kidney, Ureter and Bladder using Other Contrast (ICD-10-PCS; 2018-07-30)
PROC: 0T778DZ Dilation of Left Ureter with Intraluminal Device, Via Natural or Artificial Opening Endoscopic (ICD-10-PCS; principal; 2018-07-30 18:15)
PROC: 02HV33Z Insertion of Infusion Device into Superior Vena Cava, Percutaneous Approach (ICD-10-PCS; 2018-08-01)
PROC: B548ZZA Ultrasonography of Superior Vena Cava, Guidance (ICD-10-PCS; 2018-08-01)
PROC: 0TC78ZZ Extirpation of Matter from Left Ureter, Via Natural or Artificial Opening Endoscopic (ICD-10-PCS; 2018-08-07)
PROC: 0T778DZ Dilation of Left Ureter with Intraluminal Device, Via Natural or Artificial Opening Endoscopic (ICD-10-PCS; 2018-08-07)
PROC: BT1FYZZ Fluoroscopy of Left Kidney, Ureter and Bladder using Other Contrast (ICD-10-PCS; 2018-08-07)
DX: A41.59 Other Gram-negative sepsis (principal); N17.0 Acute kidney failure with tubular necrosis; N13.2 Hydronephrosis with renal and ureteral calculous obstruction; Z68.42 Body mass index [BMI] 45.0-49.9, adult; N30.00 Acute cystitis without hematuria; R65.20 Severe sepsis without septic shock; B96.1 Klebsiella pneumoniae [K. pneumoniae] as the cause of diseases classified elsewhere; Z16.12 Extended spectrum beta lactamase (ESBL) resistance; G47.33 Obstructive sleep apnea (adult) (pediatric); E11.40 Type 2 diabetes mellitus with diabetic neuropathy, unspecified; Z79.84 Long term (current) use of oral hypoglycemic drugs; I10 Essential (primary) hypertension; E78.5 Hyperlipidemia, unspecified; F32.9 Major depressive disorder, single episode, unspecified; K21.9 Gastro-esophageal reflux disease without esophagitis; Z85.3 Personal history of malignant neoplasm of breast; Z87.891 Personal history of nicotine dependence; Z98.84 Bariatric surgery status; E66.01 Morbid (severe) obesity due to excess calories; E88.09 Other disorders of plasma-protein metabolism, not elsewhere classified; E83.52 Hypercalcemia
CPT/HCPCS: 36415; 51702; 70450; 71045; 74018; 74177; 74420; 76705; 80048; 80053; 80069; 80076; 80307; 81003; 81015; 82140; 82306; 82360; 82652; 82805; 82962; 83605; 83690; 83735; 83970; 84100; 85025; 87040; 87077; 87086; 87088; 87186; 87205; 87493; 87804; 88300; 94640; 94660; 94760; 97110; 97163; 97530; 99285; J0330; J0696; J1100; J1650; J1940; J2250; J2370; J2405; J2543; J2550; J2704; J2997; J3010; J3475; J7030; Q9967